=== PATIENT | female | born 1945 | race Caucasian/White ===

== ENCOUNTER 2019-01-30 14:51 | Inpatient (IN) ==
[2019-01-30] MEDS ORDERED: SODIUM CHLORIDE 0.9% 1000ML 1,000 ML IV ONE (15:21)
[2019-01-30] MEDS ORDERED: MECLIZINE HCL 25 MG TAB PO STA (15:21)
[2019-01-30] MEDS ORDERED: PROMETHAZINE 12.5 MG/50.5 ML BAG IV STA (15:36)
[2019-01-30 15:52] LABS: Basophils # (auto) 0.01 K/uL (0-0.2); Basophils % (auto) 0.1 %; Eosinophils # (auto) 0.12 K/uL (0-0.5); Eosinophils % (auto) 1.1 %; Hematocrit (blood only) 38.2 % (37-47); Hemoglobin 12.7 g/dL (12.0-16.0); Immature Granulocytes # (auto) 0.02 K/uL (0.00-0.02); Immature Granulocytes % (auto) 0.2 %; Lymphocytes # (auto) 2.35 K/uL (1.2-3.4); Lymphocytes % (auto) 22.3 %; Mean Corpuscular Hemoglobin 28.3 pg (25-34); Mean Corpuscular Hgb Conc 33.2 g/dL (32-36); Mean Corpuscular Volume 85.3 fL (80-100); Mean Platelet Volume 8.9 fL (7.4-10.4); Monocytes # (auto) 0.53 K/uL (0.11-0.59); Neutrophils # (auto) 7.53 K/uL (1.4-6.5); Neutrophils % (auto) 71.3 %; Platelet Count 298 K/uL (130-400); RDW Coefficient of Variation 13.2 % (11.5-14.5); RDW Standard Deviation 41.1 fL (36.4-46.3); Red Blood Count 4.48 M/uL (4.2-5.4); White Blood Count 10.56 K/uL (4.8-10.8)
--- NOTE | 2019-01-30 16:04 | Emergency Department Note ---
History of Present Illness General Chief complaint: Vomiting Stated complaint: VERTIGO SX, NAUSEA, VOMITING History of Present Illness This patient is a 73-year-old female who presents the emergency department via ALS for evaluation of dizziness and nausea/vomiting that started approximately half hour prior to arrival. The patient was trying to undergo an MRI. When she laid back, she felt intense nausea and dizziness. This is happened in the past. It is never happened to this degree. The patient has not taken any medications for her symptoms. She denies any severe headache or changes in vision. No w eakness or slurred speech. No changes in mental status. She denies any neck pain. Home Medications Home Medications Medication Instructions Recorded Confirmed Type amlodipine 5 mg PO QAM 03/24/18 01/30/19 History glipizide 5 mg PO QAM 03/24/18 01/31/19 History lisinopril 20 mg PO QAM 03/24/18 01/30/19 History famotidine 20 mg PO DAILY 01/30/19 01/30/19 History amitriptyline 20 mg PO HS 01/31/19 01/31/19 History Allergies Allergy/AdvReac Type Severity Reaction Status Date / Time Sulfa (Sulfonamide Allergy Severe Hives Verified 03/24/18 15:32 Antibiotics) Past Med/Surg History Medical History Hypertension Social History Preferred Language: Malawian Communication Ability: Effective Beliefs That Will Affect Care: None Current Living Situation: Spouse Other Information That Helps Us Care for You: No Feels Safe at Home: Yes Safety Concerns: Feels Safe At This Time Smoking Status: Never smoker Hx Alcohol Use: No Hx Substance Use: No Review of Systems A total of 10 systems reviewed and were otherwise negative Physical Exam Vital Signs Vital Signs - 24 hr 01/30/19 14:59 Temperature 36.4 C L Temperature Source Oral Sepsis Recent Fever Within 48 Hours No Sepsis New/Unexplained Change in Mental Status No Sepsis Action Taken by Nursing No Action Required Pulse Rate 73 Respiratory Rate 18 Blood Pressure 178/78 H Blood Pressure Mean 111 Pulse Oximetry 95 Oxygen Delivery Method Room Air Constitutional WD/WN, vitals as above Exam is limited secondary to severe nausea Eyes EOM intact bilaterally ENMT external ear and nose normal, oropharynx normal Neck trachea midline Respiratory normal respiratory effort, lungs clear to auscultation Cardiovascular RRR, no murmur, no edema Gastrointestinal (Abdomen) normal bowel sounds, soft, nontender, no hepatosplenomegaly Musculoskeletal no cyanosis or clubbing, extremities motor strength 5/5 Skin no rashes, warm and dry Neurologic Alert and oriented x3. No focal motor deficits. Psychiatric Acting appropriately Course Patient was seen and examined Vital signs including blood pressure were reviewed medications list was verified with patient Labs were obtained, and a saline lock was established The patient was put on a monitor. She was ordered meclizine and 1 L of normal saline. We attempted imaging. The patient could not tolerate it. She received numerous doses of IV medication for the dizziness. She did not have significant improvement. The patient was also seen by my supervising physician who is in agreement with my plan. The hospital service will be consulted for further possible inpatient management. Consultations Consultation #1: [facility] Administered Medications Discontinued Medications Amitriptyline HCl (Elavil) 20 mg PO HS SALINA Stop: 03/02/19 20:59 Last Admin: 01/31/19 21:19 Dose: 10 mg Documented by: [id number] Amlodipine Besylate (Norvasc) 5 mg PO QAM SALINA Stop: 03/02/19 08:59 Last Admin: 01/31/19 08:54 Dose: 5 mg Documented by: [id number] Diazepam (Valium) 2 mg PO NOW ONE Stop: 01/30/19 16:50 Last Admin: 01/30/19 17:16 Dose: 2 mg Documented by: [id number] Famotidine (Pepcid) 20 mg PO QAM SALINA Stop: 03/01/19 18:59 Last Admin: 02/01/19 08:33 Dose: 20 mg Documented by: [id number] Admin: 01/31/19 08:55 Dose: 20 mg Documented by: [id number] Admin: 01/30/19 23:20 Dose: 20 mg Documented by: [id number] Sodium Chloride (Nss 1000ml) 1,000 mls @ 999 mls/hr IV .Q1H1M ONE Stop: 01/30/19 16:21 Last Infusion: 01/30/19 18:22 Dose: 0 mls/hr Documented by: [id number] Admin: 01/30/19 15:49 Dose: 999 mls/hr Documented by: [id number] Promethazine HCl (Phenergan) 12.5 mg in 50.5 mls @ 202 mls/hr IV NOW STA Stop: 01/30/19 15:50 Last Infusion: 01/30/19 16:20 Dose: 0 mls/hr Documented by: [id number] Admin: 01/30/19 15:49 Dose: 202 mls/hr Documented by: [id number] Sodium Chloride (Nss 1000ml) 1,000 mls @ 50 mls/hr IV .Q20H SALINA Stop: 03/01/19 18:59 Last Infusion: 02/01/19 11:34 Dose: 0 mls/hr Documented by: [id number] Admin: 01/31/19 23:35 Dose: 50 mls/hr Documented by: [id number] Infusion: 01/31/19 23:35 Dose: 50 mls/hr Documented by: [id number] Infusion: 01/31/19 13:33 Dose: 50 mls/hr Documented by: [id number] Admin: 01/31/19 08:26 Dose: 80 mls/hr Documented by: [id number] Infusion: 01/31/19 08:26 Dose: 80 mls/hr Documented by: [id number] Admin: 01/30/19 22:10 Dose: 80 mls/hr Documented by: [id number] Insulin Aspart (Novolog Flexpen) 0 units SC ACHS SALINA Stop: 03/02/19 11:29 Last Admin: 02/01/19 08:37 Dose: Not Given Documented by: [id number] Cosigned by: [id number] Admin: 01/31/19 20:25 Dose: Not Given Documented by: [id number] Cosigned by: [id number] Admin: 01/31/19 17:46 Dose: 1 units Documented by: [id number] Cosigned by: [id number] Admin: 01/31/19 13:21 Dose: 2 units Documented by: [id number] Cosigned by: [id number] Lisinopril (Zestril) 20 mg PO QAM SALINA Stop: 03/02/19 08:59 Last Admin: 01/31/19 08:55 Dose: 20 mg Documented by: [id number] Meclizine HCl (Antivert) 25 mg PO NOW STA Stop: 01/30/19 15:22 Last Admin: 01/30/19 15:49 Dose: 25 mg Documented by: [id number] Metoclopramide HCl (Reglan) 10 mg IV Q6H PRN PRN Reason: Nausea Stop: 03/01/19 21:44 Last Admin: 01/31/19 10:13 Dose: 10 mg Documented by: [id number] Ondansetron HCl (Zofran) Confirm Administered Dose 4 mg .ROUTE .STK-MED ONE Stop: 01/30/19 21:11 Last Admin: 01/30/19 21:18 Dose: 4 mg Documented by: [id number] Medical Decision Making Medical Records Attestation: I reviewed the patient's medical records. Home Medications Current Medication List: was personally reviewed by me Laboratory Data Attestation: I reviewed the patient's lab results. Result diagrams: 01/31/19 06:01 02/01/19 05:28 Lab Results 01/30/19 01/30/19 01/30/19 Range/Units 15:21 15:21 15:21 WBC 10.56 (4.8-10.8) K/uL RBC 4.48 (4.2-5.4) M/uL Hgb 12.7 (12.0-16.0) g/dL Hct 38.2 (37-47) % MCV 85.3 (80-100) fL MCH 28.3 (25-34) pg MCHC 33.2 (32-36) g/dL RDW Std Deviation 41.1 (36.4-46.3) fL RDW Coeff of Breanna 13.2 (11.5-14.5) % Plt Count 298 (130-400) K/uL MPV 8.9 (7.4-10.4) fL Immature Gran % (Auto) 0.2 % Neut % (Auto) 71.3 % Lymph % (Auto) 22.3 % Reynolds % (Auto) 5.0 % Eos % (Auto) 1.1 % Baso % (Auto) 0.1 % Immature Gran # (Auto) 0.02 (0.00-0.02) K/uL Neut # (Auto) 7.53 H (1.4-6.5) K/uL Lymph # (Auto) 2.35 (1.2-3.4) K/uL Reynolds # (Auto) 0.53 (0.11-0.59) K/uL Eos # (Auto) 0.12 (0-0.5) K/uL Baso # (Auto) 0.01 (0-0.2) K/uL PT Cancelled INR Cancelled Sodium 136 (136-145) mmol/L Potassium 3.6 (3.5-5.1) mmol/L Chloride 102 (98-107) mmol/L Carbon Dioxide 28 (21-32) mmol/L Anion Gap 6.0 (3-11) BUN 23 H (7-18) mg/dl Creatinine 1.27 H (0.6-1.2) mg/dl Est Cr Clr Drug Dosing 37.0 ml/min Est GFR ( Amer) 47.8 Est GFR (Non-Af Amer) 41.2 BUN/Creatinine Ratio 18.0 (10-20) Glucose 149 H (70-99) mg/dl POC Glucose (70-99) Calcium 9.3 (8.5-10.1) mg/dl Magnesium (1.8-2.4) mg/dl Total Bilirubin 0.2 (0.2-1) mg/dl AST 7 L (15-37) U/L ALT 16 (12-78) U/L Alkaline Phosphatase 104 (45-117) U/L Total Protein 6.9 (6.4-8.2) gm/dl Albumin 3.4 (3.4-5.0) gm/dl Globulin 3.5 (2.5-4.0) gm/dl Albumin/Globulin Ratio 1.0 (0.9-2) Lipase 135 (73-393) U/L Vitamin B12 (211-911) pg/ml 01/30/19 01/30/19 01/31/19 Range/Units 15:21 20:20 06:01 WBC 5.54 (4.8-10.8) K/uL RBC 3.96 L (4.2-5.4) M/uL Hgb 11.3 L (12.0-16.0) g/dL Hct 33.6 L (37-47) % MCV 84.8 (80-100) fL MCH 28.5 (25-34) pg MCHC 33.6 (32-36) g/dL RDW Std Deviation 41.0 (36.4-46.3) fL RDW Coeff of Breanna 13.1 (11.5-14.5) % Plt Count 288 (130-400) K/uL MPV 8.6 (7.4-10.4) fL Immature Gran % (Auto) 0.0 % Neut % (Auto) 58.2 % Lymph % (Auto) 33.0 % Reynolds % (Auto) 7.2 % Eos % (Auto) 1.4 % Baso % (Auto) 0.2 % Immature Gran # (Auto) 0.00 (0.00-0.02) K/uL Neut # (Auto) 3.22 (1.4-6.5) K/uL Lymph # (Auto) 1.83 (1.2-3.4) K/uL Reynolds # (Auto) 0.40 (0.11-0.59) K/uL Eos # (Auto) 0.08 (0-0.5) K/uL Baso # (Auto) 0.01 (0-0.2) K/uL PT INR Sodium (136-145) mmol/L Potassium (3.5-5.1) mmol/L Chloride (98-107) mmol/L Carbon Dioxide (21-32) mmol/L Anion Gap (3-11) BUN (7-18) mg/dl Creatinine (0.6-1.2) mg/dl Est Cr Clr Drug Dosing ml/min Est GFR ( Amer) Est GFR (Non-Af Amer) BUN/Creatinine Ratio (10-20) Glucose (70-99) mg/dl POC Glucose (70-99) Calcium (8.5-10.1) mg/dl Magnesium 1.9 (1.8-2.4) mg/dl Total Bilirubin (0.2-1) mg/dl AST (15-37) U/L ALT (12-78) U/L Alkaline Phosphatase (45-117) U/L Total Protein (6.4-8.2) gm/dl Albumin (3.4-5.0) gm/dl Globulin (2.5-4.0) gm/dl Albumin/Globulin Ratio (0.9-2) Lipase (73-393) U/L Vitamin B12 268 (211-911) pg/ml 01/31/19 01/31/19 Range/Units 06:01 11:47 WBC (4.8-10.8) K/uL RBC (4.2-5.4) M/uL Hgb (12.0-16.0) g/dL Hct (37-47) % MCV (80-100) fL MCH (25-34) pg MCHC (32-36) g/dL RDW Std Deviation (36.4-46.3) fL RDW Coeff of Breanna (11.5-14.5) % Plt Count (130-400) K/uL MPV (7.4-10.4) fL Immature Gran % (Auto) % Neut % (Auto) % Lymph % (Auto) % Reynolds % (Auto) % Eos % (Auto) % Baso % (Auto) % Immature Gran # (Auto) (0.00-0.02) K/uL Neut # (Auto) (1.4-6.5) K/uL Lymph # (Auto) (1.2-3.4) K/uL Reynolds # (Auto) (0.11-0.59) K/uL Eos # (Auto) (0-0.5) K/uL Baso # (Auto) (0-0.2) K/uL PT INR Sodium 139 (136-145) mmol/L Potassium 3.9 (3.5-5.1) mmol/L Chloride 105 (98-107) mmol/L Carbon Dioxide 28 (21-32) mmol/L Anion Gap 6.0 (3-11) BUN 14 (7-18) mg/dl Creatinine 0.67 D (0.6-1.2) mg/dl Est Cr Clr Drug Dosing 70.1 ml/min Est GFR ( Amer) 99.7 Est GFR (Non-Af Amer) 86.0 BUN/Creatinine Ratio 21.1 H (10-20) Glucose 120 H (70-99) mg/dl POC Glucose 128 H (70-99) Calcium 8.4 L (8.5-10.1) mg/dl Magnesium (1.8-2.4) mg/dl Total Bilirubin 0.4 (0.2-1) mg/dl AST 10 L (15-37) U/L ALT 13 (12-78) U/L Alkaline Phosphatase 90 (45-117) U/L Total Protein 6.0 L (6.4-8.2) gm/dl Albumin 3.0 L (3.4-5.0) gm/dl Globulin 3.0 (2.5-4.0) gm/dl Albumin/Globulin Ratio 1.0 (0.9-2) Lipase (73-393) U/L Vitamin B12 (211-911) pg/ml Blood Pressure Blood Pressure Findings: Elevated blood pressure Head Trauma GCS Score: 15 MDM Narrative Differential diagnosis: Vertigo, intracranial bleed, mass, dehydration, anemia, electrolyte imbalance, infectious etiology, among others This patient is a 73-year-old female who presents to the emergency department with a sudden onset of positional dizziness. She has a history of vertigo. Her symptoms seems consistent with such. She was neurologically intact. Vital signs stable. I did not have a high suspicion of intracranial abnormality. Labs are stable. Unfortunately I cannot get her comfortable. [facility] was consulted for possible inpatient management. Impression & Plan Vertigo Discharge Plan Visit Data *Final* Discharge Date/Time: 01/30/19 21:56 Chief Complaint: Vomiting Stated Complaint: VERTIGO SX, NAUSEA, VOMITING ED Provider: Saqib Shields ED Midlevel Provider: Laura Reed Discharge Problem: Vertigo Patient Disposition: Admitted As Inpatient Condition: Fair Discharge Instructions Interventions: ED Discharge Assessment Last Done: 01/30/19 21:56
[2019-01-30 16:08] LABS: Albumin Level 3.4 gm/dl (3.4-5.0); Calcium 9.3 mg/dl (8.5-10.1); Est GFR (African American) 47.8; Est GFR (Non-African American) 41.2; Potassium 3.6 mmol/L (3.5-5.1)
[2019-01-30 16:11] LABS: Bilirubin,Total 0.2 mg/dl (0.2-1); Globulin 3.5 gm/dl (2.5-4.0); Total Protein 6.9 gm/dl (6.4-8.2)
[2019-01-30] MEDS ORDERED: diazePAM 2 MG TABLET PO ONE (16:49)
[2019-01-30] MEDS ORDERED: ONDANSETRON INJ 2 MG/ML 2 ML VIAL IV PRN (18:54)
[2019-01-30] MEDS ORDERED: ONDANSETRON INJ 2 MG/ML 2 ML VIAL ONE (21:10)
--- NOTE | 2019-01-30 21:32 | History & Physical Report ---
Date of Service January 30, 2019 Assessment & Plan (1) Nausea & vomiting: -01/30/19: patient is a 73-year-old female who presents the emergency department via ALS for evaluation of dizziness and nausea/vomiting that started approximately half hour prior to arrival. The patient was trying to undergo an MRI. When she laid back, she felt intense nausea and dizziness -clear liquid diet -antiemetics prn -IV fluids -would avoid any head imaging at this time until patient feel subjectively be tter -patient reports when she walks at home, she feels like she has problems with balance -obtain PT and OT evaluations -B12 levels are normal -patient has followed with [facility] cardiology and 11/22/18 workup noted that symptoms of generalized fatigue and continuous lightheadedness unresolving however with generally unremarkable ZIO patch monitor on October 2018 and negative stress echocardiogram in November 2018 borderline gastroparesis, Gastroesophageal Reflux Disease (GERD) -patient was evaluated on 01/01/19 by outpatient [facility] gastronenterology and was recommended to stop stop Ranitidine and Start Famotidine 20mg daily -outpatient GI notes also noted that patient has been in the past in Reglan and had plans of Levsin 0.125mg TID prn abd pain; trial increase of Amitriptyline to 20mg qHS but by history it is not clear that patient is taking these new medication/medication dosing at home Acute kidney injury -creatinine 1.27 on 01/30/19 compared to creatinine of 0.7 on 10/05/18 outpatient records on [facility] -IV fluids -send urine analysis (2) HTN (hypertension): -continue home dose lisinopril and amlodipine DVT prophylaxis SCDs Full Code Agapito [phone], Daughter [phone] Hinson will be following the patient starting on 01/31/19 History of Present Illness patient is a 73-year-old female who presents the emergency department via ALS for evaluation of dizziness and nausea/vomiting that started approximately half hour prior to arrival. The patient was trying to undergo an MRI. When she laid back, she felt intense nausea and dizziness. When seen by hospitalist in the ED, patient's appeared very tired but able to give history. Patient did not seem to be in acute distress. denied fevers. denied diarrhea or problems with bowel movements. no acute abdominal pain. no chest pain. no shortness of breath. However, she did not seem ready to be able to leave the emergency room on her own power Primary Care Provider: Devi Isidro DO Allergies Allergy/AdvReac Type Severity Reaction Status Date / Time Sulfa (Sulfonamide Allergy Severe Hives Verified 03/24/18 15:32 Antibiotics) Home Medications Home Medications Medication Instructions Recorded Confirmed Type amlodipine 5 mg PO QAM 03/24/18 01/30/19 History glipizide 2.5 mg PO QAM 03/24/18 01/30/19 History lisinopril 20 mg PO QAM 03/24/18 01/30/19 History famotidine 20 mg PO DAILY 01/30/19 01/30/19 History Past Med/Surg History Medical History Hypertension Social History Preferred Language: Emirati Feels Safe at Home: Yes Smoking Status: Never smoker Physical Exam Constitutional: appeared tired in appearance Eyes: PERRL, conjunctivae normal, anicteric sclerae ENMT: external ear and nose normal, oropharynx normal Neck: normal visual inspection Respiratory: normal respiratory effort, lungs clear to auscultation Cardiovascular: Rate/Rhythm: regular rate and regular rhythm Gastrointestinal (Abdomen): normal bowel sounds, soft, nontender, no hepatosplenomegaly Musculoskeletal: Head/Neck/Chest: normocephalic and head atraumatic Neurologic: PERRL, EOMI, accommodation nl, no face palsy, no dysarthria Psychiatric: Orientation: alert, oriented x 3 and cooperative Results & Data Vital Signs (Past 12 Hours) Vital Signs Temp Pulse Pulse Resp BP BP Pulse Ox 01/30/19 20:00 60 14 158/59 H 95 01/30/19 19:30 60 14 159/65 H 95 01/30/19 19:00 60 14 157/76 H 96 01/30/19 18:30 63 15 156/66 H 96 01/30/19 18:21 63 18 158/78 H 97 01/30/19 18:20 67 21 158/78 H 97 01/30/19 17:31 56 L 16 165/61 H 01/30/19 17:01 59 L 13 165/67 H 01/30/19 17:00 61 14 01/30/19 16:39 80 18 150/78 H 95 01/30/19 16:00 58 L 18 151/63 H 01/30/19 15:08 72 22 95 01/30/19 15:00 74 14 180/73 H 93 01/30/19 14:59 36.4 C L 73 18 178/78 H 95 Code Status & VTE Plan VTE Prophylaxis Plan VTE Prophylaxis will be ordered: Yes
[2019-01-30] MEDS ORDERED: METOCLOPRAMIDE HCL INJ 5 MG/ML 2 ML VIAL IV PRN (21:45)
[2019-01-30] MEDS: SODIUM CHLORIDE 0.9% 1000ML 1,000 ML IV SCH (22:10)
[2019-01-30] MEDS: FAMOTIDINE 20 MG TAB PO SCH (23:20)
[2019-01-31] MEDS ORDERED: Nursing to Pharmacy Communication ONE ×2 (01:10→10:09)
[2019-01-31 06:22] LABS: Basophils # (auto) 0.01 K/uL (0-0.2); Basophils % (auto) 0.2 %; Eosinophils # (auto) 0.08 K/uL (0-0.5); Eosinophils % (auto) 1.4 %; Hematocrit (blood only) 33.6 % (37-47); Hemoglobin 11.3 g/dL (12.0-16.0); Lymphocytes # (auto) 1.83 K/uL (1.2-3.4); Mean Corpuscular Hemoglobin 28.5 pg (25-34); Mean Corpuscular Hgb Conc 33.6 g/dL (32-36); Mean Corpuscular Volume 84.8 fL (80-100); Mean Platelet Volume 8.6 fL (7.4-10.4); Monocytes % (auto) 7.2 %; Neutrophils # (auto) 3.22 K/uL (1.4-6.5); Neutrophils % (auto) 58.2 %; Platelet Count 288 K/uL (130-400); RDW Coefficient of Variation 13.1 % (11.5-14.5); Red Blood Count 3.96 M/uL (4.2-5.4); White Blood Count 5.54 K/uL (4.8-10.8)
[2019-01-31 06:45] LABS: Appearance Urine Clear (Clear); Bilirubin Urine Negative (Negative); Blood Urine Negative (Negative); Color Urine Yellow; Glucose Urine UA Negative (Negative); Ketones Urine Trace (Negative); Leukocyte Esterase Urine Negative (Negative); Nitrite Urine Negative (Negative); Protein Urine Negative (Negative); Urobilinogen Urine Negative (Negative)
[2019-01-31 06:59] LABS: BUN Creatinine Ratio 21.1 (10-20); Calcium 8.4 mg/dl (8.5-10.1); Creatinine Clr Calc Pharmacy 70.1 ml/min; Est GFR (African American) 99.7; Potassium 3.9 mmol/L (3.5-5.1)
[2019-01-31 07:00] LABS: Bilirubin,Total 0.4 mg/dl (0.2-1)
[2019-01-31] MEDS: SODIUM CHLORIDE 0.9% 1000ML 1,000 ML IV SCH ×2 (08:26→23:35)
[2019-01-31] MEDS: FAMOTIDINE 20 MG TAB PO SCH (08:55)
[2019-01-31] MEDS ORDERED: LISINOPRIL 20 MG TAB PO SCH (09:00)
[2019-01-31] MEDS ORDERED: AMLODIPINE BESYLATE 5 MG TAB PO SCH (09:00)
[2019-01-31] MEDS ORDERED: GLUCOSE 10 TABS/TUBE PO PRN (09:34)
[2019-01-31] MEDS ORDERED: GLUCAGON FOR INJ 1 MG VIAL SQ PRN (09:34)
[2019-01-31] MEDS ORDERED: DEXTROSE 50% 50 ML SYRINGE IV PRN (09:34)
[2019-01-31] MEDS ORDERED: GLUCOSE 40% GEL 15 GM TUBE PO PRN (09:34)
[2019-01-31] MEDS ORDERED: CARBOHYDRATES FOR HYPOGLYCEMIA PO PRN (09:34)
[2019-01-31] MEDS: INSULIN ASPART 100 UNITS/ML 3 ML PEN SC SCH ×3 (13:21→20:25)
[2019-01-31] MEDS ORDERED: FAMOTIDINE 20 MG TAB PO SCH (13:30)
--- NOTE | 2019-01-31 15:47 | Hospitalist Progress Note ---
Date of Service January 31, 2019 Assessment & Plan (1) Nausea & vomiting: Patient is a 73 Yr female who presents for evaluation of dizziness and nausea/vomiting that started after she laid back to undergo an MRI. Dizziness Vertigo Could not obtain CT/MRI due to difficulty to lie flat Orthostatics Negative Had extensive work up with [facility] Cardiology as outpatient with ZIO patch, Stress test Vertigo resolved as per patient Gentle IV fluids Antiemetics PRN Gastroparesis Continue Amitriptyline Follows with GI as outpatient Gastroparesis diet Acute kidney injury Cr back to baseline after IV fluids Monitor renal function Avoid nephrotoxic agents as able (2) HTN (hypertension): Slightly elevated Continue lisinopril and amlodipine Limited choice for med changes due to dizziness and bradycardia DM II Hold PO meds Utilize ISS while hospitalized DVT Px: SCDs Code Status Full Code Disposition Expect to discharge home when stable Subjective Patient is seen and examined at bedside Complaints of nausea which is chronic, which she attributes to gastroparesis Vertigo resolved States having mild dizziness and balance issues Denies any chest pain, shortness of breath, vomiting, fever chills Family at bedside Offers no other complaints PT evaluated earlier today Review of Systems Review of Systems: All systems reviewed & are unremarkable except as noted in HPI & below Physical Exam Physical Exam: Physical Exam: Vitals signs as noted above General Appearance:Moderately built and nourished, no apparent distress Head: normocephalic, Atraumatic Eyes: normal inspection, EOMI Neck: supple, Trachea midline Respiratory/Chest: Normal breath sounds, CTA Cardiovascular: S1, S2, No murmur Abdomen/GI:Soft, Non tender, Bowel sounds present Extremities/Musculoskelatal:normal inspection, no edema Neurologic/Psych:AAOX3, grossly no focal neurological deficits Skin: normal color, warm Results & Data Vital Signs (Past 12 Hours) Vital Signs Temp Pulse Resp BP Pulse Ox 01/31/19 15:12 36.4 C L 53 L 18 136/74 94 01/31/19 07:30 36.7 C 57 L 18 151/74 H 97 Laboratory Results Short CBC 01/30/19 01/31/19 Range/Units 15:21 06:01 WBC 10.56 5.54 (4.8-10.8) K/uL Hgb 12.7 11.3 L (12.0-16.0) g/dL Hct 38.2 33.6 L (37-47) % Plt Count 298 288 (130-400) K/uL BMP 01/30/19 01/31/19 15:21 06:01 Sodium 136 139 Potassium 3.6 3.9 Chloride 102 105 Carbon Dioxide 28 28 BUN 23 H 14 Creatinine 1.27 H 0.67 D Glucose 149 H 120 H Calcium 9.3 8.4 L Liver Function 01/30/19 01/31/19 Range/Units 15:21 06:01 Total Bilirubin 0.2 0.4 (0.2-1) mg/dl AST 7 L 10 L (15-37) U/L ALT 16 13 (12-78) U/L Alkaline Phosphatase 104 90 (45-117) U/L Albumin 3.4 3.0 L (3.4-5.0) gm/dl Urine 01/31/19 Range/Units Unknown Urine Color Yellow Urine Appearance Clear (Clear) Urine pH 7.0 (4.5-7.5) Ur Specific [place] 1.020 (1.000-1.030) Urine Protein Negative (Negative) Urine Glucose (UA) Negative (Negative)
[2019-01-31] MEDS ORDERED: MECLIZINE 12.5 MG TAB PO PRN (15:48)
[2019-01-31] MEDS ORDERED: ONDANSETRON INJ 2 MG/ML 2 ML VIAL IV PRN (15:50)
[2019-01-31] MEDS ORDERED: AMITRIPTYLINE HCL 10 MG TAB PO SCH (21:00)
[2019-02-01 06:14] LABS: BUN Creatinine Ratio 16.7 (10-20); Calcium 8.5 mg/dl (8.5-10.1); Creatinine Clr Calc Pharmacy 69.1 ml/min; Est GFR (African American) 99.2; Est GFR (Non-African American) 85.6; Potassium 3.9 mmol/L (3.5-5.1)
[2019-02-01] MEDS: FAMOTIDINE 20 MG TAB PO SCH (08:33)
[2019-02-01] MEDS: INSULIN ASPART 100 UNITS/ML 3 ML PEN SC SCH (08:37)
--- NOTE | 2019-02-01 12:05 | Hospitalist Progress Note ---
Date of Service February 01, 2019 Assessment & Plan (1) Nausea & vomiting: Patient is a 73 Yr female who presents for evaluation of dizziness and nausea/vomiting that started after she laid back to undergo an MRI. Dizziness--Resolved Vertigo --Resolved Could not obtain CT/MRI due to difficulty to lie flat Orthostatics Negative Had extensive work up with [facility] Cardiology as outpatient with ZIO patch, Stress test Vertigo resolved as per patient Received gentle IV fluids Antiemetics PRN Meclizine not helpful in the past as per patient Gastroparesis Continue Amitriptyline Follows with GI as outpatient Gastroparesis diet Acute kidney injury Cr back to baseline after IV fluids Monitor renal function Avoid nephrotoxic agents as able (2) HTN (hypertension): Slightly elevated Continue lisinopril and amlodipine Limited choice for med changes due to dizziness and bradycardia DM II Hold PO meds Utilize ISS while hospitalized DVT Px: SCDs Code Status Full Code Disposition Plan to discharge home today Did well with PT Subjective Patient is seen and examined at bedside Doing much better today Offers no complaints Dizziness, Vertigo, nausea resolved Denies any chest pain, shortness of breath, vomiting, fever chills Plan to discharge home today Review of Systems Review of Systems: All systems reviewed & are unremarkable except as noted in HPI & below Physical Exam Physical Exam: Physical Exam: Vitals signs as noted above General Appearance:Moderately built and nourished, no apparent distress Head: normocephalic, Atraumatic Eyes: normal inspection, EOMI Neck: supple, Trachea midline Respiratory/Chest: Normal breath sounds, CTA Cardiovascular: S1, S2, No murmur Abdomen/GI:Soft, Non tender, Bowel sounds present Extremities/Musculoskelatal:normal inspection, no edema Neurologic/Psych:AAOX3, grossly no focal neurological deficits Skin: normal color, warm Results & Data Vital Signs (Past 12 Hours) Vital Signs Temp Pulse Resp BP Pulse Ox 02/01/19 07:10 36.3 C L 78 20 149/73 H 97 Laboratory Results [facility] 02/01/19 05:28 Sodium 138 Potassium 3.9 Chloride 104 Carbon Dioxide 30 BUN 11 Creatinine 0.68 Glucose 108 H Calcium 8.5
--- NOTE | 2019-02-01 12:08 | Discharge Summary ---
Date of Service February 01, 2019 Admission HPI Per Admitting Provider patient is a 73-year-old female who presents the emergency department via ALS for evaluation of dizziness and nausea/vomiting that started approximately half hour prior to arrival. The patient was trying to undergo an MRI. When she laid back, she felt intense nausea and dizziness. When seen by hospitalist in the ED, patient's appeared very tired but able to give history. Patient did not seem to be in acute distress. denied fevers. denied diarrhea or problems with bowel movements. no acute abdominal pain. no chest pain. no shortness of breath. However, she did not seem ready to be able to leave the emergency room on her own power Primary Care Provider: Devi Isidro, DO Admission Exam Per Admitting Provider Constitutional: appeared tired in appearance Eyes: PERRL, conjunctivae normal, anicteric sclerae ENMT: external ear and nose normal, oropharynx normal Neck: normal visual inspection Respiratory: normal respiratory effort, lungs clear to auscultation Cardiovascular: Rate/Rhythm: regular rate and regular rhythm Gastrointestinal (Abdomen): normal bowel sounds, soft, nontender, no hepatosplenomegaly Musculoskeletal: Head/Neck/Chest: normocephalic and head atraumatic Neurologic: PERRL, EOMI, accommodation nl, no face palsy, no dysarthria Psychiatric: Orientation: alert, oriented x 3 and cooperative Principal Diagnosis Dizziness Vertigo Discharge Data Allergies Allergy/AdvReac Type Severity Reaction Status Date / Time Sulfa (Sulfonamide Allergy Severe Hives Verified 03/24/18 15:32 Antibiotics) Consultations 01/30/19 18:14 ED Decision to Admit Stat 01/30/19 18:54 Consult Case Management - Discharge Planning Routine Hospital Course (1) Nausea & vomiting: Patient is a 73 Yr female who presents for evaluation of dizziness and nausea/vomiting that started after she laid back to undergo an MRI. Dizziness--Resolved Vertigo --Resolved Could not obtain CT/MRI due to difficulty to lie flat Orthostatics Negative Had extensive work up with [facility] as outpatient with ZIO patch, Stress test Vertigo resolved as per patient Received gentle IV fluids Antiemetics PRN Meclizine not helpful in the past as per patient Gastroparesis Continue Amitriptyline Follows with GI as outpatient Gastroparesis diet Acute kidney injury Cr back to baseline after IV fluids Monitor renal function Avoid nephrotoxic agents as able (2) HTN (hypertension): Slightly elevated Continue lisinopril and amlodipine Limited choice for med changes due to dizziness and bradycardia DM II Hold PO meds Utilize ISS while hospitalized DVT Px: SCDs Code Status Full Code Disposition Plan to discharge home today Did well with PT Total Time Total Time Spent Total Time Spent (In Minutes): 38 minutes Total Time Includes: Examination of the Patient, Discharge Planning, Medication Reconciliation, Communication With Other Providers and Other Discharge Plan Discharge Items Patient Disposition: Home - Self-Care Reason For Visit: NAUSEA Discharge Diagnosis: Dizziness Vertigo Activity: Resume your previous activity Exercise/Sports: Gradually increase as tolerated Non-emergency contact: Primary Care Provider Call non-emergency contact if: you have any medication questions, your symptoms worsen, your pain is not controlled, your pain is worsening, your pain is unusual for you, your pain is concerning for you and you have a fever Follow-up/Referrals: Devi Isidro, DO [Primary Care Provider] - Diet: Carb Consistent or DM2 Addtl Attending Provider Instructions: Follow-up with your primary care physician on February 07, 2019 at 11:05 AM Seek immediate medical attention if your symptoms reoccur or worsen Pending Studies at Discharge: No Stand-Alone Forms: My [facility] [employer], Smoking Cessation Medications and DC Order Prescriptions: Continued lisinopril 20 mg Tablet 20 mg PO QAM RF: 0 amlodipine 5 mg Tablet 5 mg PO QAM RF: 0 glipizide 2.5 mg Tablet Extended Release 24hr 5 mg PO QAM RF: 0 famotidine 20 mg tablet 20 mg PO DAILY RF: 0 amitriptyline 10 mg Tablet 20 mg PO HS RF: 0 Discharge Orders: Discharge Order (Routine); Ordered 02/01/19 Ordered By: Clarence Oconnell/Other Patient Handouts: Hyperglycemia, Hypoglycemia Admission Data Admit Date/Time: 01/31/19 13:37 Attending Provider: Clarence Hinson Admit Provider: Valentín Chadwick Primary Care Provider: Devi Isidro Other Providers: Valentín Chadwick Other Interventions: Discharge Summary Assessment (RN) Last Done: 02/01/19 12:16 DC Date/Time DO NOT enter until pt leaves facility: 02/01/19 13:00
[2019-02-01] MEDS ORDERED: LISINOPRIL 20 MG TAB PO SCH (21:00)
[2019-02-01] MEDS ORDERED: AMLODIPINE BESYLATE 5 MG TAB PO SCH (21:00)
== END 2019-02-01 13:00 | disposition home or self-care (01) | DRG 392 ==
LOC: 4W 14:51 → ED 14:51 → SUATTDRO 21:16 → 4W 21:56

== ENCOUNTER 2021-02-17 08:25 | Observation (INO) ==
--- NOTE | 2020-12-31 16:21 | PAT Medication Instructions ---
Medication Instructions Date of Service December 31, 2020 Home Medications amlodipine 5 mg tablet 5 mg PO QAM glipizide 2.5 mg tablet, extended release 24 hr 5 mg PO BID lisinopril 20 mg tablet 20 mg PO QAM famotidine 20 mg tablet 20 mg PO BID amitriptyline 10 mg tablet 20 mg PO HS cholecalciferol (vitamin D3) 25 mcg (1,000 unit) chewable tablet (Vitamin D3) 25 mcg PO PM prednisone 5 mg tablet 5 mg PO QAM DO NOT take the morning of surgery glipizide 2.5 mg tablet, extended release 24 hr 5 mg PO BID lisinopril 20 mg tablet 20 mg PO QAM Take morning of surgery With a small sip of water, OTHERWISE NOTHING TO EAT OR DRINK AFTER MIDNIGHT: amlodipine 5 mg tablet 5 mg PO QAM famotidine 20 mg tablet 20 mg PO BID prednisone 5 mg tablet 5 mg PO QAM Take evening before surgery glipizide 2.5 mg tablet, extended release 24 hr 5 mg PO BID famotidine 20 mg tablet 20 mg PO BID amitriptyline 10 mg tablet 20 mg PO HS cholecalciferol (vitamin D3) 25 mcg (1,000 unit) chewable tablet (Vitamin D3) 25 mcg PO PM Other Notes If you have any questions please call us at [phone] or [phone] or [phone] or [phone]
--- NOTE | 2021-01-04 15:26 | Anesthesiology Consultation ---
Date of Service January 04, 2021 Assessment & Plan (1) Encounter for pre-operative examination: Chart Review Chart Review: Acceptable Risk for Surgery (pending preop Covid testing results ) and Patient seen in Pre Admission Testing PT STATES SHE GETS SIGNIFICANT NAUSEA AND DIZZINESS AFTER LYING FLAT EVEN FOR SHORT PERIODS OF TIME - Check BSG AM DOS Per PAT appt on 01/04/21, patient is planning on going to a play in [place] on 01/09/21- she will wear a mask and try to social distance as much as possible. Patient educated on risks- patient understands and accepts. No known Covid positive contacts or Covid related symptoms. No known Covid infection in the past 90 days. Pt is vaccinated for Covid.. Preop Covid testing scheduled 01/11/21= will await results. Educated on importance of self quarantining, social distancing and wearing mask in public for the patient one week prior to surgery and after Covid testing done. Patient seen by cardiology 12/31/2020 = patient seen for routine cardiology follow-up and preoperative cardio evaluation. Early signs of tachybradycardia syndrome, without evidence of worsening bradycardia or high degree AV block on monitor. Asymptomatic. Hypertensioncontrolled. Hyperlipidemia, without lipid-lowering therapy. Stable cardiac symptoms. Recent monitor reviewed without concerning tachycardia or bradycardia arrhythmias. BP well controlled. DSE approximately 2 years ago without inducible ischemia, normal LV function and no significant valvular disease. No symptoms to suggest crescendo angina or CHF at this time. EKG without acute changes. Other than her hip painshe is able to walk >100 yards, and greater than 5 METS workload without symptoms. " She is considered low to moderate risk for perioperative cardiac complications based on history and comorbidities. Further cardiac testing is not warranted at this time prior to planned orthopedic procedure." Continue carvedilol without interruption. Follow-up in 1 year. Cardiac clearance request 12/31/2020 = " yes" patient is cleared for surgery. Teaching & Discussion Pre-Anesthesia Teaching/Discussion Notes: Instructed NPO after midnight before surgery,except medications with 15 cc of water. Medication instructions provided according to the PAT guidelines. History Surgery Operation Date: 01/12/21 10:20 Proposed Procedures p Left Total Hip Arthroplasty versus Dual Mobility - Antoni Heart MD Height/Weight Height: 5 ft 4 in Weight: 65.6 kg Allergies Allergy/AdvReac Type Severity Reaction Status Date / Time Sulfa (Sulfonamide Allergy Severe Hives Verified 12/28/20 09:43 Antibiotics) Medications Home Medications Medication Instructions Recorded Confirmed Last Taken amlodipine 5 mg tablet 5 mg PO QAM 03/24/18 12/28/20 03/24/18 glipizide 2.5 mg tablet, extended 5 mg PO BID 03/24/18 12/28/20 03/24/18 release 24 hr lisinopril 20 mg tablet 20 mg PO QAM 03/24/18 12/28/20 03/24/18 famotidine 20 mg tablet 20 mg PO BID 01/30/19 12/28/20 Unknown amitriptyline 10 mg tablet 20 mg PO HS 01/31/19 12/28/20 Unknown cholecalciferol (vitamin D3) 25 25 mcg PO PM 12/28/20 12/28/20 Unknown mcg (1,000 unit) chewable tablet (Vitamin D3) prednisone 5 mg tablet 5 mg PO QAM 12/28/20 12/28/20 Unknown carvedilol 3.125 mg tablet 3.125 mg PO BID 01/04/21 01/04/21 Unknown Past Medical History Medical History Borderline high cholesterol no meds BPPV (benign paroxysmal positional vertigo) CANNOT lie flat, gets severe balance problem and nausea Diabetes mellitus, type 2 NIDDM Glucose stable Gastroparesis GERD (gastroesophageal reflux disease) Diet dependent History of COVID-21 Mar 2020> tested at [facility] > chills, extreme exhaustion> not hospitalized Hypertension Polymyalgia rheumatica Follows with rheum (Dr. Lo) - stable per patient PONV (postoperative nausea and vomiting) severe> took a week to get over this last time Tachycardia Borderline tachy-yari syndrome, paroxysmal atrial tachycardia per records Controlled on low dose carvedilol Exercise / Class Metabolic Activity II 4-5 Yardwork/Stairs/Walk up hill (one flight of stairs - no chest pain or SOB ) Past Family History Family History Mother Diabetes Father Diabetes Brother Diabetes Other Cancer Heart disease Stroke Past Surgical History Surgical History Fracture, sacrum/coccyx as child, had to have sacrum removed due to fx History of colonoscopy History of esophagogastroduodenoscopy (EGD) History of tooth extraction History of total knee replacement bilat Past Anesthesia History No Hx of Anesthesia Complications and No Family Hx of Anesthesia Complications (with exception to daughter - PONV ) History of PONV History of PONV (WITH LAYING FLAT ON BACK ) and Hx of Motion Sickness Social History Smoking Status: Never smoker Do You Dip or Chew Tobacco: No Hx Alcohol Use: No Hx Substance Use: No substance use type: does not use Review of Systems Hx of blood transfusion with right TKA - used own blood Patient denies chest pain, shortness of breath at rest, cough, wheezing, palpitations. No hx of seizures, stroke, ND, apnea/snoring. No hx of blood clots. Physical Exam Vital Signs VITALS BP 146/67 P 62 TEMP 97.7 SP02 97% RESP 16 Constitutional no acute distress ENMT Mouth: no TMJ clicking Thyromental Distance: < 3.5 Finger Breadths (2.5) Mallampati Class: II Crowns to molars Neck + limited neck extension (significant ) Respiratory normal respiratory effort; no respiratory distress Auscultation: lungs clear to auscultation bilaterally; no wheezes Cardiovascular Rate/Rhythm: regular rate and regular rhythm Heart Sounds: no murmur Vessels: no carotid bruit Musculoskeletal Spine: + pain with cervical ROM Extremities: extremities normal to inspection Psychiatric Orientation: alert Lab Results Anesthesia Preop Results Results Anesthesia Widget: WBC 7.16 K/uL (4.8-10.8) 01/04/21 Hgb 12.2 g/dL (12.0-16.0) 01/04/21 Hct 37.3 % (37-47) 01/04/21 Plt 332 K/uL (130-400) 01/04/21 Na 137 mmol/L (136-145) 01/04/21 K 4.0 mmol/L (3.5-5.1) 01/04/21 Cl 104 mmol/L (98-107) 01/04/21 CO2 27 mmol/L (21-32) 01/04/21 BUN 16 mg/dl (7-18) 01/04/21 Creat 0.80 mg/dl (0.6-1.2) 01/04/21 Glucose Level 269 mg/dl (70-99) H 01/04/21 PT 9.9 Seconds (9.0-12.0) 01/04/21 PTT 24.5 Seconds (21.0-31.0) 01/04/21 INR 1.0 (0.9-1.1) 01/04/21 HA1c 7.6 % (4.5-5.6) H 01/04/21 Urine Color Yellow 01/04/21 Urine Appearance Clear (Clear) 01/04/21 Urine pH 6.0 (4.5-7.5) 01/04/21 Urine Specific [place] 1.017 (1.000-1.030) 01/04/21 Urine Protein Negative (Negative) 01/04/21 Urine Glucose (UA) 2+ (Negative) H 01/04/21 Urine Ketones Negative (Negative) 01/04/21 Urine Blood Negative (Negative) 01/04/21 Urine Nitrite Negative (Negative) 01/04/21 Urine Bilirubin Negative (Negative) 01/04/21 Urine Urobilinogen Negative (Negative) 01/04/21 Urine Leukocyte Esterase Negative (Negative) 01/04/21 Blood Type A Positive 01/04/21 Antibody Screen NEGATIVE 01/04/21 Lab Comments: Surgeon's office informed of glucose levels Testing Electrocardiogram Date: 12/31/20 Sinus rhythm with PACs at 63 bpm. Otherwise normal EKG per cardio. When compared to EKG from May 27, 2019PACs are now present, criteria for anterior septal infarct are no longer present per cardio. Chest X-Ray Date: 01/04/21 Findings: + NAD Stress Test Date: 11/23/18 Type: exercise Resting EF: 55 to 60% Resting LV Function: normal Resting RWMA: + none Valvular Disease: no significant valvular disease Stress ECHO is negative for inducible ischemia. MPHR 88%. 7 METS achieved. Stress EKG showed no evidence of ischemia. No arrhythmias. Hypertensive BP response to exercise. Average exercise tolerance. At rest, normal LV chamber size and wall thickness. Grade 1 diastolic dysfunction. Other Testing ZIO monitor 12/08/2020 = minimal HR 41 bpm, max HR 174 bpm and average HR 65 bpm. Predominant underlying rhythm was sinus rhythm. 54 supraventricular tachycardia runs occurred. Supraventricular tachycardia was detected within +/-45 seconds of symptomatic events. Some episodes of supraventricular tachycardia may be possible atrial tachycardia with variable block. Isolated SVE's were rare. SVE couplets were rare. SVE triplets were rare. Isolated VE's were rare. VE couplets were rare. VE triplets were rare. Ventricular bigeminy and trigeminy were present.
--- NOTE | 2021-01-04 17:01 | History & Physical Report ---
Date of Service January 04, 2021 Assessment & Plan (1) Degenerative joint disease of left hip: Plan: Postoperative prescriptions for Percocet and Coumadin will be provided at discharge from the hospital. Anticipate discharge to home with home health services. She states her is ill and will not be able to drive her to many appointments. The patient already has a walker. She understands that the case, may be postponed due to bed space limitations at the hospital. The patient is aware of COVID-19 risks associated with surgery. She is currently asymptomatic of any COVID-19 symptoms. She will obtain nasal swab testing on Monday prior to surgery. PDMP was checked and there are no concerning findings. History of Present Illness Chief Complaint: Left hip pain Primary Care Provider: Devi Isidro, This 75-year-old female presents today for her preoperative history and physical. She is scheduled to undergo a left total hip arthroplasty with possible dual mobility cup on 01/12/2021. The patient has had left hip pain for several years. It was slowly getting worse. 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 She is now walking with a walking stick. Pain is worse with weightbearing. It is sore, but is tolerable when sitting. She denies any numbness or tingling. She has tried conservative measurements including activity modification and oral pain medication without improvement. She elects to proceed with surgical intervention in hopes of improving her pain and function. Preoperative imaging has been obtained. Allergies Allergy/AdvReac Type Severity Reaction Status Date / Time Sulfa (Sulfonamide Allergy Severe Hives Verified 12/28/20 09:43 Antibiotics) Home Medications Medication Instructions Recorded Confirmed Type amlodipine 5 mg tablet 5 mg PO QAM 03/24/18 12/28/20 History glipizide 2.5 mg tablet, extended 5 mg PO BID 03/24/18 12/28/20 History release 24 hr lisinopril 20 mg tablet 20 mg PO QAM 03/24/18 12/28/20 History famotidine 20 mg tablet 20 mg PO BID 01/30/19 12/28/20 History amitriptyline 10 mg tablet 20 mg PO HS 01/31/19 12/28/20 History cholecalciferol (vitamin D3) 25 25 mcg PO PM 12/28/20 12/28/20 History mcg (1,000 unit) chewable tablet (Vitamin D3) prednisone 5 mg tablet 5 mg PO QAM 12/28/20 12/28/20 History carvedilol 3.125 mg tablet 3.125 mg PO BID 01/04/21 01/04/21 History Past Med/Surg History Medical History Borderline high cholesterol no meds BPPV (benign paroxysmal positional vertigo) CANNOT lie flat, gets severe balance problem and nausea Diabetes mellitus, type 2 NIDDM Glucose stable Gastroparesis GERD (gastroesophageal reflux disease) Diet dependent History of COVID-21 Mar 2020> tested at [facility] > chills, extreme exhaustion> not hospitalized Hypertension Polymyalgia rheumatica Follows with rheum (Dr. Lo) - stable per patient PONV (postoperative nausea and vomiting) severe> took a week to get over this last time Tachycardia Borderline tachy-yari syndrome, paroxysmal atrial tachycardia per records Controlled on low dose carvedilol Surgical History Fracture, sacrum/coccyx as child, had to have sacrum removed due to fx History of colonoscopy History of esophagogastroduodenoscopy (EGD) History of tooth extraction History of total knee replacement bilat Family History (Updated 01/04/21 @ 16:57 by Petros Robledo PA-C) Mother Diabetes Father Diabetes Brother Diabetes Other Cancer Heart disease Stroke Social History (Updated 01/04/21 @ 16:57 by Petros Robledo PA-C) Smoking Status: Never smoker Second Hand Exposure: Yes (parents smoked); Hx Alcohol Use: No Hx Substance Use: No Preferred Language: Danish Communication Ability: Effective Hearing Ability: Normal Archaeology Professor Required: No Beliefs That Will Affect Care: None marital status: Current Living Situation: Spouse current occupational status: retired Feels Safe at Home: Yes Assistive Devices: Glasses Review of Systems Review of Systems: All systems reviewed & are unremarkable except as noted in HPI & below A total of 10 systems were reviewed. Physical Exam Physical Exam: Vitals: Height 158 cm, weight 65.4 kilograms, BMI 26.2, temperature 36.5, BP 122/62, respirations 16, O2 sat 98% on room air. General: Well-developed, well-nourished, elderly white female in no acute distress. Sitting in a chair. Alert and oriented. Skin: Warm and dry with good turgor. No rashes or lesions. No ecchymosis or erythema. HEENT: Normocephalic, atraumatic. Eyes: PERRLA, EOMI. Nares and oropharynx exams deferred due to COVID precautions. Heart: RRR, no MGR. Lungs: Clear to auscultation bilaterally. No crackles, rhonchi or wheezing. Good air movement. Abdomen: Mildly obese. Bowel sounds present x4, soft, nontender. No organomegaly. No masses. Musculoskeletal: Left hip evaluation reveals no obvious asymmetry or deformity. She has limitations in motion secondary to pain. Hip flexion to around 100 degrees, external rotation of around 10 degrees, internal rotation to just past neutral. These are all limited by pain. No discomfort with palpation over the distal thigh, greater trochanter, gluteus, or quadriceps. She does have discomfort over the anterior flexion crease. Ambulates today with a slightly antalgic gait. Neurologic: Gross sensation is intact across both lower extremities by soft touch. Peripheral pulses are 2+. Results & Data Results & Data ([facility]) Diagnostic Findings Radiographic imaging previously obtained shows advanced DJD of the left hip. She has significant joint space loss as well as periarticular osteophytes. Code Status & VTE Plan VTE Prophylaxis Plan VTE Prophylaxis will be ordered: Yes
--- NOTE | 2021-02-15 08:00 | History & Physical Report ---
Date of Service February 15, 2021 Assessment & Plan (1) Degenerative joint disease of left hip: Plan: Postoperative prescriptions for Percocet and Coumadin will be provided at discharge from the hospital. Anticipate discharge to home with home health services. She already has a walker. She understands that is the case may be postponed due to bed space availability. The patient is aware of COVID-19 risks associated with surgery. She is currently asymptomatic of any COVID-19 symptoms. She will obtain her nasal swab testing on Monday. PDMP was checked and there are no concerning findings. Preoperative lab work was updated today. EKG and chest x-ray are up-to-date. History of Present Illness Chief Complaint: Left hip pain Primary Care Provider: Devi Isidro, This 75-year-old female presents for her preoperative history and physical. She is scheduled to undergo a left total hip arthroplasty with possible dual mobility cup on 02/17/2021. She was previously scheduled for total hip surgery on 01/12/2021, but was postponed secondary to bed availability status at the hospital. She has had left hip pain for several years. It has been slowly getting worse. 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 She is now walking with a walking stick or cane. Pain is worse with weightbearing. She notes soreness with sitting. She denies any numbness or tingling. She has tried conservative care measures including activity modification and oral pain medication without improvement. She elects to proceed with surgical intervention in hopes of improving her pain and function. Preoperative imaging has been obtained. She has already seen her PCP for medical clearance. Allergies Allergy/AdvReac Type Severity Reaction Status Date / Time Sulfa (Sulfonamide Allergy Severe Hives Verified 12/28/20 09:43 Antibiotics) Home Medications Medication Instructions Recorded Confirmed Type amlodipine 5 mg tablet 5 mg PO QAM 03/24/18 12/28/20 History glipizide 2.5 mg tablet, extended 5 mg PO BID 03/24/18 12/28/20 History release 24 hr lisinopril 20 mg tablet 20 mg PO QAM 03/24/18 12/28/20 History famotidine 20 mg tablet 20 mg PO BID 01/30/19 12/28/20 History amitriptyline 10 mg tablet 20 mg PO HS 01/31/19 12/28/20 History cholecalciferol (vitamin D3) 25 25 mcg PO PM 12/28/20 12/28/20 History mcg (1,000 unit) chewable tablet (Vitamin D3) prednisone 5 mg tablet 5 mg PO QAM 12/28/20 12/28/20 History carvedilol 3.125 mg tablet 3.125 mg PO BID 01/04/21 01/04/21 History Past Med/Surg History Medical History Borderline high cholesterol no meds BPPV (benign paroxysmal positional vertigo) CANNOT lie flat, gets severe balance problem and nausea Diabetes mellitus, type 2 NIDDM Glucose stable Gastroparesis GERD (gastroesophageal reflux disease) Diet dependent History of COVID-21 Mar 2020> tested at [facility] > chills, extreme exhaustion> not hospitalized Hypertension Polymyalgia rheumatica Follows with rheum (Dr. Lo) - stable per patient PONV (postoperative nausea and vomiting) severe> took a week to get over this last time Tachycardia Borderline tachy-yari syndrome, paroxysmal atrial tachycardia per records Controlled on low dose carvedilol Surgical History Fracture, sacrum/coccyx as child, had to have sacrum removed due to fx History of colonoscopy History of esophagogastroduodenoscopy (EGD) History of tooth extraction History of total knee replacement bilat Family History Mother Diabetes Father Diabetes Brother Diabetes Other Cancer Heart disease Stroke Social History (Updated 01/04/21 @ 16:57 by Petros Robledo PA-C) Smoking Status: Never smoker Second Hand Exposure: Yes (parents smoked); Hx Alcohol Use: No Hx Substance Use: No Preferred Language: Chinese Communication Ability: Effective Hearing Ability: Normal Supervisor [employer] Required: No Beliefs That Will Affect Care: None marital status: Current Living Situation: Spouse current occupational status: retired Feels Safe at Home: Yes Assistive Devices: Glasses Review of Systems Review of Systems: All systems reviewed & are unremarkable except as noted in HPI & below A total of 10 systems were reviewed. Physical Exam Physical Exam: Vitals: Height 158 cm, weight 65.4 kilograms, BMI 26.2, temperature 36.5, BP 126/76, pulse 62, and O2 sat 99% on room air. General: Well-developed, well-nourished, elderly female in no acute distress. Sitting in a chair. Alert and oriented. Skin: Warm and dry with good turgor. No rashes or lesions. No ecchymosis or erythema. HEENT: Normocephalic, atraumatic. Eyes: PERRLA, EOMI. Nares and oropharynx exams deferred due to COVID precautions. Heart: RRR, no MGR. Lungs: Clear to auscultation bilaterally. No crackles, rhonchi or wheezing. Good air movement. Abdomen: Mildly obese. Bowel sounds present x4, soft, nontender. No cardiomegaly. No masses. Musculoskeletal: Left hip evaluation continues to have no obvious asymmetry or deformity. She has limitations in motion secondary to pain. Hip flexion to around 100 degrees, external rotation of around 10 degrees, internal rotation to just past neutral. These are all limited by pain. No discomfort with palpation over the distal thigh, greater trochanter, gluteus or quadriceps. There is discomfort with palpation over the anterior flexion crease. Ambulating today with a slightly antalgic gait. Neurologic: Gross sensation is intact across both lower extremities by soft touch. Peripheral pulses are 2+. Results & Data Results & Data ([facility]) Diagnostic Findings Radiographic imaging previously obtained shows advanced DJD of the left hip. There is notable joint space loss as well as periarticular osteophytes. Code Status & VTE Plan VTE Prophylaxis Plan VTE Prophylaxis will be ordered: Yes
[~2021-02-17 08:25] MED LIST: BUPIVACAINE 0.5 % 5 MG/1 ML PF 10ML VIAL ONE; LR 500ML BOLUS, THEN 15ML/HR IV SCH; LR 60ML/HR IV SCH; ROPIVACAINE 0.5% HCL/PF 150 MG, BUPIVACAINE 0.75% MPF 20 ML, EPINEPHrine 0.15 MG, Ketor... INFIL SCH; TRANEXAMIC ACID 1,000 MG **IV Pre-op IV SCH; ceFAZolin 2000MG 2,000 MG/15 ML SYR IV SCH; methylPREDNISolone 125 MG/2 ML VIAL IV SCH; methylPREDNISolone 60 MG in SYRINGE 0 ML IV ONE
--- NOTE | 2021-02-17 08:49 | History & Physical Bridge Note ---
Date of Service February 17, 2021 History & Physical Bridge Note I have examined the patient, reviewed the History & Physical and in the interval since the performance of the History & Physical I have noted the following changes of clinical significance: consent obtained/site verified/covid screen negative.no changes noted
[2021-02-17] MEDS ORDERED: DEXAMETHASONE SOD INJ 4 MG/ML VIAL ONE (09:55)
[2021-02-17] MEDS ORDERED: ROCURONIUM BROMIDE 10 MG/ML 5 ML VIAL IV ONE (09:55)
[2021-02-17] MEDS ORDERED: METOCLOPRAMIDE HCL INJ 5 MG/ML 2 ML VIAL ONE (09:55)
[2021-02-17] MEDS ORDERED: ONDANSETRON INJ 2 MG/ML 2 ML VIAL ONE (09:55)
[2021-02-17] MEDS ORDERED: fentaNYL citrate 100 MCG/2 ML VIAL ONE (09:55)
[2021-02-17] MEDS ORDERED: PROPOFOL IV EMULSION 10 MG/ML 20 ML VIAL IV ONE ×2 (09:55→12:39)
[2021-02-17] MEDS ORDERED: PROMETHAZINE HCL 12.5 MG in SODIUM CHLORIDE 0.9% 50 ML IV PRN (10:23)
[2021-02-17] MEDS ORDERED: ATROPINE SULFATE 0.1 MG/ML 10ML SYR IV PRN (10:23)
[2021-02-17] MEDS ORDERED: METOCLOPRAMIDE HCL INJ 5 MG/ML 2 ML VIAL IV PRN ×2 (10:23→14:46)
[2021-02-17] MEDS ORDERED: HYDROmorphone INJ 2 MG/ML SYR/VIAL IV PRN (10:23)
[2021-02-17] MEDS ORDERED: fentaNYL citrate 100 MCG/2 ML VIAL IV PRN (10:23)
[2021-02-17] MEDS ORDERED: ePHEDrine sulfate 50 MG/ML AMP IV PRN (10:23)
[2021-02-17] MEDS ORDERED: ONDANSETRON INJ 2 MG/ML 2 ML VIAL IV PRN ×2 (10:23→14:46)
[2021-02-17] MEDS ORDERED: MIDAZOLAM HCL 1 MG/ML 2ML VIAL ONE (10:30)
[2021-02-17] MEDS ORDERED: ORTHO JOINT ANESTHETIC ONE (11:14)
[2021-02-17] MEDS ORDERED: ePHEDrine sulfate 50 MG/ML SYR ONE (12:30)
--- NOTE | 2021-02-17 13:15 | Post Operative Brief Note ---
Immediate Post Op Note v1 Date of Surgery February 17, 2021 Pre & Post Diagnosis Operation Date: 02/17/21 10:40 Pre-Op Diagnosis: Degenerative Joint Disease Left Hip Post-Op Diagnosis: Degenerative Joint Disease Left Hip I identified the patient and participated in the time-out.: Yes Procedure Operation Date: 02/17/21 10:40 Actual Procedures p Left Total Hip Dual Mobility Arthroplasty, Uncemented(Left) - Antoni Heart MD Surgeon Antoni Heart MD Space Studies Faculty Member Pk/Venkat/Km MS-2 Estimated Blood Loss 75 Findings Consistent with Post-Op Diagnosis
--- NOTE | 2021-02-17 13:28 | Operative Report ---
Post Operative Report Pre & Post Diagnosis Operation Date: 02/17/21 10:40 Pre-Op Diagnosis: Degenerative Joint Disease Left Hip Post-Op Diagnosis: Degenerative Joint Disease Left Hip I identified the patient and participated in the time-out.: Yes Procedure Operation Date: 02/17/21 10:40 Actual Procedures p Left Total Hip Dual Mobility Arthroplasty, Uncemented(Left) - Antoni Heart MD Surgeon MILTON Heart MD Insulation Supervisor Pk/Venkat/Km MS-2 Estimated Blood Loss 75 Findings Consistent with Post-Op Diagnosis see operative report Specimens see operative report Drains none Complications none Disposition Accompanied Patient To Recovery: Yes Indications This 75-year-old female presented to the office with complaints of intractable left hip pain. She had tried conservative care measures without improvement. She elected to proceed with surgical intervention after being educated about potential risks and outcomes. Preoperative imaging was obtained. Description of Procedure Patient was administered a spinal anesthetic and then taken to the operating room where she was given sedation. She was prepped and draped in the usual sterile fashion. Please see Dr. Heart's operative report for specifics of the procedure. I was present for the entire case from initial patient positioning through final wound closure. Assistance was provided in tissue retraction, hemostasis, trial implant placement, final implant placement, and final wound closure. Patient was taken to the recovery room in satisfactory con dition. I attest to the content of the Intraoperative Record and any orders documented therein. Any exceptions are noted below.
--- NOTE | 2021-02-17 13:29 | Operative Report ---
Post Operative Report Pre & Post Diagnosis Operation Date: 02/17/21 10:40 Pre-Op Diagnosis: Degenerative Joint Disease Left Hip Post-Op Diagnosis: Degenerative Joint Disease Left Hip I identified the patient and participated in the time-out.: Yes Procedure Operation Date: 02/17/21 10:40 Actual Procedures p Left Total Hip Dual Mobility Arthroplasty, Uncemented(Left) - Antoni Heart MD Surgeon [facility] Specialist Pk/Venkat/Km MS-2 Estimated Blood Loss 75 Findings Consistent with Post-Op Diagnosis Consistent with post op diagnosis Specimens No specimens Description of Procedure I participated in prepping dressing and assisted Dr. Heart during the procedure. Please se DR. Heart note I attest to the content of the Intraoperative Record and any orders documented therein. Any exceptions are noted below. Supervising Physician Co-Signing Physician Notes Dr. Heart
[2021-02-17] MEDS ORDERED: VANCOMYCIN HCL 1,000 MG in SODIUM CHLORIDE 0.9% 250 ML IV ONE (13:45)
--- NOTE | 2021-02-17 14:08 | Operative Report (OR) ---
DATE OF PROCEDURE: 02/17/2021 SURGEON: Antoni Heart MD. PELOTA MAKER: Magaly Whittington MD. SECOND PELOTA MAKER: Petros Robledo PA-C. THIRD PELOTA MAKER: Med student, Km, EMILIA. PREOPERATIVE DIAGNOSIS: Osteoarthritis, left hip. POSTOPERATIVE DIAGNOSIS: Osteoarthritis, left hip with dysplasia. OPERATION PERFORMED: Dual mobility left total hip replacement, noncemented. SUMMARY OF IMPLANTS: Size 50 cup hole eliminator, 6.5 x 25 screw, 22.2 x 43 poly liner, 22.25 +4 hea d, 4 high offset Tri-Lock, dual mobility liner [place] 50. ESTIMATED BLOOD LOSS: 50-75 mL. CRYSTALLOID: Per anesthesia. PATHOLOGY: Pending on bone. DVT prophylaxis per protocol. PERIOPERATIVE SITUATION: Medically cleared female with dysplasia of her hip and intractable osteoart hritis, wished to proceed with surgical treatment, total hip replacement. She has significant low ba ck arthritis and stiffness, so a dual mobility liner was the appropriate choice. DESCRIPTION OF PROCEDURE: The patient was appropriately identified, site verified, consent verified. Antibiotics were confirmed as being given. The patient was placed in the right lateral decubitus p osition. The left lower extremity was prepped and draped in usual routine fashion. A posterior appro ach to the hip was then made. Sharp dissection carried through skin, blunt dissection down to fascia . The IT band and gluteal obdulio fascia was then incised, retractor then placed to carefully open u p the wound and protect the sciatic nerve. The short external rotators were then cleaned of any soft tissue with a gauze dissection and then they were released and care taken to protect the sciatic ner ve with dissection. The capsule was then T'ed and preserved. The hip was then dislocated. The femoral neck resected. Acetabular exposure was excellent. There w as some minor retroversion of the cup. The anterior osteophyte was resected. The labrum was resecte d. Serial reaming carried up to a 50 and a 50 cup impacted into appropriate anteversion and inclinat ion. An additional 6.5 x 25 screw placed with excellent purchase. Trial liner was then seated. The hip was then flexed and internally rotated. The proximal femur prepared with picker box operator, canal find er, lateralizing rasp and serial broaching up to a 4 with a 4 fitting extremely well. Trial reductio n with a +4 neck was excellent. Leg lengths were within millimeters of equality and the stability wa s superb. The hip was then dislocated and the wound irrigated after all trial elements remaining needed to be r emoved and then once that was done, the hole eliminator seated, the permanent liner seated, permanent stem and head seated, and hip reduced. It was stable in all planes. Leg lengths were good. The wo und was then irrigated one final time with Betadine Pulsavac and then closed with #2 Vicryl for the c apsule and short external rotators, #2 Vicryl for the IT band and the gluteus obdulio fascia, couple of deep fat sutures with #2 Vicryl, then the subcutaneous layer with 2-0 Vicryl and stainless steel c lips. Appropriate dressing applied. The patient was transferred to recovery room in satisfactory co ndition, having tolerated the procedure well. Job ID: [id number]
--- NOTE | 2021-02-17 14:11 | Anesthesiology Progress Note ---
Date of Service February 17, 2021 Anesthesia Post Procedure Vital Signs Vital Signs: Temp Pulse Pulse Resp BP Pulse Ox 02/17/21 13:55 47 L 12 136/59 L 99 02/17/21 13:45 50 L 15 135/58 L 100 02/17/21 13:35 48 L 12 129/56 L 100 02/17/21 13:27 36 C L 59 L 17 134/57 L 100 02/17/21 13:05 47 L 14 141/60 H 95 02/17/21 09:31 36.7 C 51 L 18 160/62 H 100 02/17/21 08:53 36.9 C 62 20 178/71 H 100 Transfer of Care Handoff Completed per policy Notes Mental Status: alert / awake / arousable and participated in evaluation Patient Amnestic to Procedure: Yes Nausea / Vomiting: adequately controlled Pain: adequately controlled Airway Patency, RR, SpO2: stable & adequate BP & HR: stable & adequate Hydration State: stable & adequate Neuraxial Anesthesia: was administered and sensory block is resolving Anesthetic Complications: no major complications apparent
--- NOTE | 2021-02-17 14:16 | XRay Report ---
XR pelvis 1-2V routine HISTORY: 75 years-old Female S/P L YUSRA left hip total joint arthroplasty COMPARISON: Radiographs from 11/09/2020 TECHNIQUE: AP view of the pelvis FINDINGS: Left hip total joint arthroplasty. Lateral skin perlita are noted along with expected postoperative s oft tissue swelling and deep tissue air. No acute fracture or retained foreign body. Mild right hip o steoarthritis. Moderate degeneration of the pubic symphysis. No acute fracture or retained foreign jackie dy. Moderate fecal retention. IMPRESSION: Left hip total joint arthroplasty with expected postoperative changes. ACT 112: Negative or not required by law. The above report was generated using voice recognition software. It may contain grammatical, syntax o r spelling errors. Electronically signed by: Otis Hurst M.D. 02/17/2021 2:15 PM
--- NOTE | 2021-02-17 14:24 | Discharge Summary (DS) ---
DATE OF ADMISSION: 02/17/2021 DATE OF DISCHARGE: 02/18/2021 if she does well overnight. CHIEF COMPLAINT: Left hip pain. HISTORY OF PRESENT ILLNESS: Underwent elective left total hip replacement. Hospital course at this point has been uneventful. ALLERGIES: SULFA. HOME MEDICATIONS: Include amlodipine, glipizide, , famotidine, amitriptyline, vitamin D, prednisone, carvedilol. PAST MEDICAL HISTORY: Remarkable for hypercholesterolemia, positional vertigo, type 2 diabetes, gastroparesis, GERD, history of COVID-19 back in 03/2020, polymyalgia rheumatica, tachycardia. PAST SURGICAL HISTORY: Remarkable for fractured sacrum, colonoscopy, EGDs, tooth extraction, bilateral knee replacements, partial on the right and total on the left. FAMILY HISTORY: Remarkable for diabetes, cancer, heart disease and stroke. SOCIAL HISTORY: She does not smoke. She lives with her spouse. REVIEW OF SYSTEMS: Noncontributory. ASSESSMENT: Status post left total hip replacement with dual mobility components. At this point in time, discharge to home with services if she does well overnight. Deep venous thrombosis prophylaxis per protocol. Job ID: [id number] [facility]
[2021-02-17] MEDS ORDERED: ALUMINUM/MAGNESIUM SUSP 30 ML UDC PO PRN (14:46)
[2021-02-17] MEDS ORDERED: NALOXONE HCL 0.4 MG/1 ML VIAL/CARP IV PRN (14:46)
[2021-02-17] MEDS ORDERED: HYDROmorphone INJ 0.5 MG/0.5 ML SYR IV PRN (14:46)
[2021-02-17] MEDS ORDERED: MAGNESIUM HYDROXIDE SUSP 30 ML UDC PO PRN (14:46)
[2021-02-17] MEDS ORDERED: diphenhydrAMINE 50 MG/ML VIAL IV PRN (14:46)
[2021-02-17] MEDS ORDERED: bisacodyL 10 MG SUPP PR PRN (14:46)
[2021-02-17] MEDS ORDERED: SODIUM CHLORIDE 0.9% 1000ML 1,000 ML IV SCH (14:46)
[2021-02-17] MEDS ORDERED: oxyCODONE HCL IR 5 MG TAB (IMMEDIATE RELEASE) PO PRN (14:46)
[2021-02-17] MEDS ORDERED: ORTHO WARFARIN NOMOGRAM SCH (14:46)
--- NOTE | 2021-02-17 15:42 | Progress Notes ---
DATE OF SERVICE: 02/17/2021 SUBJECTIVE: Status post left total hip replacement with dual mobility implants. She is doing well. Denies chest pain, shortness of breath, fever, chills, nausea, vomiting or headache. OBJECTIVE: VITAL SIGNS: Stable. She is afebrile. Neurovascular check is limited by spinal. Wound dressing clean, dry and intact. Hip, supple range o f motion. Dressing clean, dry and intact. X-rays postop look excellent. ASSESSMENT: Status post left total hip replacement with dual mobility implants. Continue with prese nt care pathway. Discharge home tomorrow if she does well overnight. Job ID: [id number]
[2021-02-17] MEDS: INSULIN ASPART 100 UNITS/ML VIAL SC SCH ×2 (17:22→21:01)
[2021-02-17] MEDS: FERROUS GLUCONATE 324 MG TAB PO SCH (17:24)
[2021-02-17] MEDS: KETOROLAC TROMETHAMINE 15 MG/ML VIAL IV SCH ×2 (17:24→21:00)
[2021-02-17] MEDS: ASCORBIC ACID 500 MG TAB PO SCH (17:24)
[2021-02-17] MEDS: ACETAMINOPHEN 500 MG TAB PO SCH ×2 (17:24→20:59)
[2021-02-17] MEDS: ceFAZolin 2000MG 2,000 MG/15 ML SYR IV SCH (19:27)
[2021-02-17] MEDS ORDERED: TRANEXAMIC ACID / 0.7% NACL 1,000 MG/100 ML BAG IV SCH (19:30)
[2021-02-17] MEDS: carvediloL 3.125 MG TAB PO SCH (20:55)
[2021-02-17] MEDS: DOCUSATE SODIUM 100 MG CAP PO SCH (20:58)
[2021-02-17] MEDS: FAMOTIDINE 20 MG TAB PO SCH (20:59)
[2021-02-17] MEDS ORDERED: AMITRIPTYLINE HCL 10 MG TAB PO SCH (21:00)
[2021-02-17] MEDS ORDERED: SENNA 8.6 MG TAB PO SCH (21:00)
[2021-02-17] MEDS ORDERED: WARFARIN SOD 5 MG TAB PO ONE (23:06)
[2021-02-18] MEDS: KETOROLAC TROMETHAMINE 15 MG/ML VIAL IV SCH ×2 (03:39→10:32)
[2021-02-18] MEDS: ceFAZolin 2000MG 2,000 MG/15 ML SYR IV SCH (03:39)
[2021-02-18] MEDS: ACETAMINOPHEN 500 MG TAB PO SCH (06:13)
[2021-02-18 06:22] LABS: Basophils # (auto) 0.01 K/uL (0-0.2); Basophils % (auto) 0.1 %; Hematocrit (blood only) 31.8 % (37-47); Hemoglobin 10.5 g/dL (12.0-16.0); Immature Granulocytes # (auto) 0.02 K/uL (0.00-0.02); Immature Granulocytes % (auto) 0.2 %; Mean Corpuscular Hemoglobin 29.2 pg (25-34); Mean Corpuscular Volume 88.3 fL (80-100); Mean Platelet Volume 9.2 fL (7.4-10.4); Monocytes # (auto) 0.73 K/uL (0.11-0.59); Monocytes % (auto) 6.8 %; Neutrophils # (auto) 8.65 K/uL (1.4-6.5); Neutrophils % (auto) 79.9 %; Platelet Count 268 K/uL (130-400); RDW Coefficient of Variation 13.5 % (11.5-14.5); RDW Standard Deviation 43.8 fL (36.4-46.3); White Blood Count 10.81 K/uL (4.8-10.8)
[2021-02-18 07:14] LABS: Calcium 8.8 mg/dl (8.5-10.1); Creatinine Clr Calc Pharmacy 46.8 ml/min; Est GFR (African American) 74.5 ml/min; Est GFR (Non-African American) 64.3 ml/min; Potassium 4.4 mmol/L (3.5-5.1)
[2021-02-18] MEDS ORDERED: dexAMETHasone 1 MG TAB PO SCH (08:00)
[2021-02-18] MEDS: FERROUS GLUCONATE 324 MG TAB PO SCH (08:53)
[2021-02-18] MEDS: ASCORBIC ACID 500 MG TAB PO SCH (08:54)
[2021-02-18] MEDS: DOCUSATE SODIUM 100 MG CAP PO SCH (08:55)
[2021-02-18] MEDS: carvediloL 3.125 MG TAB PO SCH (08:56)
[2021-02-18] MEDS ORDERED: lisinopril 20 MG TAB PO SCH (09:00)
[2021-02-18] MEDS ORDERED: amLODIPine BESYLATE 5 MG TAB PO SCH (09:00)
[2021-02-18] MEDS ORDERED: MULTIVITAMIN TAB PO SCH (09:00)
[2021-02-18] MEDS: FAMOTIDINE 20 MG TAB PO SCH (09:03)
[2021-02-18] MEDS: INSULIN ASPART 100 UNITS/ML VIAL SC SCH ×2 (09:43→12:31)
--- NOTE | 2021-02-18 10:04 | Orthopedic Progress Note ---
Date of Service February 18, 2021 Assessment & Plan (1) S/P total left hip arthroplasty: Plan: Patient was seen in her room this morning. Postsurgical dressing was changed by me. Arrangements have been made for home health/PT. She will receive her Coumadin today prior to discharge. Continue with her exercises daily. Discharge to home after PT/OT today. Continue to use the walker for ambulation. Prescriptions for Percocet and Coumadin have been sent to her pharmacy. Written discharge instructions were provided. Admission and Anticipated Discharge Date Admission Date: February 17, 2021 Subjective Patient is seen in her room this morning. She states she did very well overnight. She has very little pain. She feels ready for discharge to home. She denies any chest pain, shortness of breath, nausea, vomiting, or abdominal pain. She has been out of bed several times. No additional complaints. Review of Systems Review of Systems: Unchanged from yesterday. Physical Exam Physical Exam: General: Well-developed, well-nourished, elderly female, in no acute distress. Sitting in bed. Alert and oriented. Conversive. No acute distress. Skin: Warm dry with good turgor. No rashes or lesions. No ecchymosis or erythema. Postsurgical dressing is in place on her left buttock. Upon removal of her dressing, surgical incision is closed. [place] are intact. Wound edges well approximated. No erythema or warmth. Minor ecchymosis is developing. No edema. No active bleeding. Musculoskeletal: Patient has supple motion of her left hip. She rises from the bed quite easily. She is able to take steps with her walker without difficulty. Motor function is intact to the knee, ankle, and toes. Neurologic: Gross sensation is intact across the left leg by soft touch. Results & Data ([facility]) Vital Signs (Past 12 Hours) Vital Signs Temp Pulse Pulse Resp BP Pulse Ox 02/18/21 08:58 63 02/18/21 06:00 36.5 C 53 L 16 119/48 L 97 Laboratory Results This morning's lab work reveals WBC is 10.8, hemoglobin 10.5, hematocrit 31.8. Electrolytes are unremarkable. Glucose this morning was 202. It reached a max of 300 yesterday afternoon. INR is pending.
[2021-02-18 10:59] LABS: INR 1.1 (0.9-1.1); Prothrombin Time 10.8 Seconds (9.0-12.0)
[2021-02-18] MEDS ORDERED: WARFARIN SOD 5 MG TAB PO ONE (12:24)
== END 2021-02-18 13:02 | disposition home health service (06) ==
LOC: PACUINP 08:25 → ASU 08:25 → ASUINP 02-18 09:01

== ENCOUNTER 2022-01-05 01:13 | Observation (INO) ==
[2022-01-05 01:51] LABS: Basophils % (auto) 0.3 %; Eosinophils % (auto) 0.9 %; Hematocrit (blood only) 40.5 % (34.1-44.9); Hemoglobin 13.7 g/dl (12.0-16.0); Immature Granulocytes % (auto) 0.3 %; Lymphocytes % (auto) 19.6 %; Mean Corpuscular Hemoglobin 29.3 pg (25.0-34.0); Mean Corpuscular Hgb Conc 33.8 g/dL (32.0-36.0); Mean Corpuscular Volume 86.5 fL (80.0-100.0); Mean Platelet Volume 9.4 fL (9.4-12.3); Monocytes % (auto) 7.1 %; Neutrophils # (auto) 7.33 K/uL (1.4-6.5); Neutrophils % (auto) 71.8 %; Platelet Count 303 K/uL (130-400); RDW Coefficient of Variation 13.2 % (11.5-14.5); RDW Standard Deviation 41.4 fL (36.4-46.3); Red Blood Count 4.68 M/uL (3.93-5.22)
[2022-01-05 01:52] LABS: Basophils # (auto) 0.03 K/uL (0-0.2); Eosinophils # (auto) 0.09 K/uL (0-0.50); Immature Granulocytes # (auto) 0.03 K/uL (0.00-0.02); Monocytes # (auto) 0.72 K/uL (0.24-0.82)
[2022-01-05 02:27] LABS: Albumin Globulin Ratio 2.3 (0.9-2); Albumin Level 4.4 gm/dl (3.4-5.0); Bilirubin,Total 1.1 mg/dl (0.2-1.0); Calcium 9.3 mg/dl (8.5-10.1); Creatinine Clr Calc Pharmacy 55.6 ml/min; Est GFR (Non-African American) 80.2 ml/min; Globulin 1.9 gm/dl (2.5-4.0); Potassium 4.1 mmol/L (3.5-5.1); Total Protein 6.3 gm/dl (6.0-8.3)
[2022-01-05] MEDS ORDERED: ONDANSETRON INJ 2 MG/ML 2 ML VIAL ONE (02:55)
[2022-01-05] MEDS ORDERED: ONDANSETRON INJ 2 MG/ML 2 ML VIAL IV STA (03:50)
[2022-01-05] MEDS ORDERED: SODIUM CHLORIDE 0.9% 1000ML 1,000 ML IV ONE (03:50)
[2022-01-05] MEDS ORDERED: FAMOTIDINE 20MG IV PUSH 20 MG/5 ML SYR IV STA (05:13)
[2022-01-05] MEDS ORDERED: METOCLOPRAMIDE HCL INJ 5 MG/ML 2 ML VIAL IV ONE (05:13)
--- NOTE | 2022-01-05 06:14 | Emergency Department Note ---
Impression & Plan Intractable nausea and vomiting Admit to the hospitalist ED Provider Note NAME: RIAN GARAY AGE: 76 SEX: F ARRIVES VIA: Walk-In INFORMANT: Patient and her daughter ED PROVIDER(S): Odalys Kim DO CHIEF COMPLAINT: Nausea and vomiting PLAN: Disposition: Admit to the hospitalist Condition: Fair MEDICAL DECISION MAKING: This is a 76-year-old female patient who presents to the emergency department with nausea and vomiting. The patient has a longstanding history of significant dizziness/nausea with lying flat. She underwent a balance test at [facility] earlier today which resulted in severe dizziness, nausea and vomiting. Patient has been unable to keep anything down throughout the entire day. Laboratory studies were drawn here and she was given IV crystalloid therapy and multiple antiemetics but her nausea and dry heaving persist. Triage Nursing notes reviewed and agree with them. Additional history obtained from the patient's daughter who is at the bedside Vital Signs: reviewed and remarkable for mild hypertension Differential diagnosis: Benign positional vertigo, posterior circulation stroke. ER treatment provided: IV normal saline bolus IV Zofran IV Pepcid IV Reglan Diagnostics interpreted by me: Cardiac Monitoring: Normal sinus rhythm at a rate of 60 Laboratory studies: See below HPI: 76/F arrives for evaluation of nausea and vomiting. The patient underwent a balance test today around 2:00 this afternoon at [facility] in [place]. This required her to lie flat and caused her severe nausea. This has been an ongoing issue for the patient for the past 3 years where lying flat makes her significantly dizzy. ROS: See above HPI for pertinent positives & negatives. A total of 10 systems reviewed and were otherwise negative. PAST MEDICAL HISTORY:See Below PAST SURGICAL HISTORY:See Below FAMILY HISTORY:See Below SOCIAL HISTORY:See Below HOME MEDICATIONS:See list ALLERGIES:See list VITALS:See Below PHYSICAL EXAMINATION: HEENT: Head - normocephalic and atraumatic. Pupils are equal, round, and react mireya to light. Extraocular eye muscles are intact, and sclera are anicteric. Nose - moist nasal mucosa without discharge. Mouth - moist buccal mucosa. Oropharynx is nonerythematous and there is no tonsillar exudate or edema noted. Neck: Supple; no cervical lymphadenopathy Heart: Regular rate and rhythm. There is a normal S1 and S2 with no murmurs, clicks, or gallops appreciated. Lungs: Clear to auscultation bilaterally with no wheezes, rales, or rhonchi. Abdomen: Soft, completely nontender, nondistended, with good bowel sounds. There are no palpable pulsatile masses or hepatosplenomegaly. There is no guarding, rigidity, or rebound noted. Extremities: No evidence of cyanosis, clubbing, or edema. There are easily palpable peripheral pulses. Skin: warm and dry with good turgor and no rashes. ED COURSE: Times/Reassessments: 315: The patient was evaluated in room B5. A complete history and physical was performed. An order was placed for continuous cardiac monitoring. The patient was in a normal sinus rhythm at a rate of 60. An IV lock was initiated and labs were drawn as above. The patient was bolused with a liter of normal saline solution. She was given 4 mg of IV Zofran. Patient describes some epigastric burning was given a dose of IV Pepcid. She tried to rest but could not get comfortable. She tried moving around in the bed and the nausea was exacerbated. She was given a dose of IV Phenergan. I discussed the case with the hospitalist and they will evaluate for intractable nausea/vomiting. Odalys Kim DO Past Med/Surg History Medical History (Updated 01/06/22 @ 08:58 by Odalys Kim DO) Borderline high cholesterol BPPV (benign paroxysmal positional vertigo) Severe balance problem and nausea Diabetes mellitus, type 2 NIDDM Gastroparesis GERD (gastroesophageal reflux disease) History of COVID-19 03/2020 > Symptoms at time: chills, extreme exhaustion>RESOLVED Hypertension Polymyalgia rheumatica Follows with rheum (Dr. 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 PONV (postoperative nausea and vomiting) severe > "took a week" to get over this *SEVERE NAUSEA WHEN LAYING FLAT Family History Mother Diabetes Father Diabetes Brother Diabetes Other Cancer Heart disease Stroke Social History Smoking Status: Never smoker Second Hand Exposure: Yes (parents); Hx Alcohol Use: No Hx Substance Use: No Preferred Language: Danish Communication Ability: Effective Hearing Ability: Normal Body Worker Required: No Beliefs That Will Affect Care: None marital status: Current Living Situation: Spouse Current Living Situation Comment: Lives at home with her current occupational status: retired Other Information That Helps Us Care for You: No Feels Safe at Home: Yes Safety Concerns: Feels Safe At This Time Assistive Devices: Cane and Glasses Allergies Allergies Allergy/AdvReac Type Severity Reaction Status Date / Time Sulfa (Sulfonamide Allergy Intermediate Hives Verified 01/05/22 02:02 Antibiotics) Home Meds Home Medications Medication Instructions Recorded Confirmed lisinopril 20 mg tablet 20 mg PO BID 03/24/18 01/05/22 famotidine 20 mg tablet 20 mg PO BID 01/30/19 01/05/22 cholecalciferol (vitamin D3) 25 25 mcg PO PM 12/28/20 01/05/22 mcg (1,000 unit) chewable tablet (Vitamin D3) carvedilol 3.125 mg tablet 3.125 mg PO BID 01/04/21 01/05/22 atorvastatin 20 mg tablet 20 mg PO QAM 12/16/21 01/05/22 duloxetine 20 mg capsule,delayed 20 mg PO DAILY 12/16/21 01/05/22 release (Cymbalta) loratadine 10 mg tablet (Claritin) 10 mg PO QAM 12/16/21 01/05/22 metformin 500 mg tablet 500 mg PO DAILY 12/16/21 01/05/22 pantoprazole 40 mg tablet,delayed 40 mg PO QAM 12/16/21 01/05/22 release amlodipine 2.5 mg tablet 2.5 mg PO DAILY 01/05/22 01/05/22 glipizide 10 mg tablet, extended 10 mg PO DAILY 01/05/22 01/05/22 release 24 hr prednisone 1 mg tablet 1 mg PO DAILY 01/05/22 01/05/22 promethazine 25 mg tablet 25 mg PO Q8H PRN n/v 01/05/22 01/05/22 Results & Data (ED) Vital Signs Vital Signs - 24 hr 01/05/22 01:17 01/05/22 01:36 01/05/22 01:36 Temperature 36.3 C L Temperature Source Temporal Artery Scan Pulse Rate 70 70 Pulse Rate [Left] 70 Pulse Rhythm Regular Respiratory Rate 18 20 20 Respiratory Effort / Characteristics Non-Labored Respiratory Depth Normal Blood Pressure 172/63 H Blood Pressure [Left Arm] 147/66 H Blood Pressure Mean 99 Blood Pressure Mean [Left Arm] 93 Blood Pressure Position [Left Arm] Lying Pulse Oximetry 98 98 98 Oxygen Delivery Method Room Air Room Air Room Air Sepsis Recent Fever Within 48 Hours No Sepsis New/Unexplained Change in Mental Status N/A Sepsis Action Taken by Nursing No Action Required 01/05/22 03:30 01/05/22 04:30 01/05/22 05:00 Temperature Temperature Source Pulse Rate Pulse Rate [Left] 72 48 L 56 L Pulse Rhythm Respiratory Rate 16 16 18 Respiratory Effort / Characteristics Non-Labored Spontaneous Non-Labored Spontaneous Respiratory Depth Normal Normal Blood Pressure Blood Pressure [Left Arm] 142/59 H 134/52 L 174/54 H Blood Pressure Mean Blood Pressure Mean [Left Arm] 86 79 94 Blood Pressure Position [Left Arm] Pulse Oximetry 96 99 98 Oxygen Delivery Method Room Air Room Air Room Air Sepsis Recent Fever Within 48 Hours Sepsis New/Unexplained Change in Mental Status Sepsis Action Taken by Nursing 01/05/22 05:30 Temperature Temperature Source Pulse Rate Pulse Rate [Left] 60 Pulse Rhythm Respiratory Rate 18 Respiratory Effort / Characteristics Respiratory Depth Blood Pressure Blood Pressure [Left Arm] 152/65 H Blood Pressure Mean Blood Pressure Mean [Left Arm] 94 Blood Pressure Position [Left Arm] Pulse Oximetry 98 Oxygen Delivery Method Room Air Sepsis Recent Fever Within 48 Hours Sepsis New/Unexplained Change in Mental Status Sepsis Action Taken by Nursing Laboratory Data Result diagrams: 01/06/22 06:44 01/06/22 06:44 Lab Results 01/05/22 01/05/22 01/05/22 Range/Units 01:33 01:33 06:45 WBC 10.20 (4.8-10.8) K/ul RBC 4.68 (3.93-5.22) M/uL Hgb 13.7 (12.0-16.0) g/dl Hct 40.5 (34.1-44.9) % MCV 86.5 (80.0-100.0) fL MCH 29.3 (25.0-34.0) pg MCHC 33.8 (32.0-36.0) g/dL RDW Std Deviation 41.4 (36.4-46.3) fL RDW Coeff of Breanna 13.2 (11.5-14.5) % Plt Count 303 (130-400) K/uL MPV 9.4 (9.4-12.3) fL Immature Gran % (Auto) 0.3 % Neut % (Auto) 71.8 % Lymph % (Auto) 19.6 % Hand % (Auto) 7.1 % Eos % (Auto) 0.9 % Baso % (Auto) 0.3 % Neut # (Auto) 7.33 H (1.4-6.5) K/uL Lymph # (Auto) 2.00 (1.2-3.4) K/uL Hand # (Auto) 0.72 (0.24-0.82) K/uL Eos # (Auto) 0.09 (0-0.50) K/uL Baso # (Auto) 0.03 (0-0.2) K/uL Immature Gran # (Auto) 0.03 H (0.00-0.02) K/uL Sodium 137 (136-145) mmol/L Potassium 4.1 (3.5-5.1) mmol/L Chloride 101 (98-107) mmol/L Carbon Dioxide 27 (21-32) mmol/L Anion Gap 9 (3-11) BUN 18 (6-23) mg/dl Creatinine 0.72 (0.6-1.2) mg/dl Est Cr Clr Drug Dosing 55.6 ml/min Est GFR ( Amer) 93.0 ml/min Est GFR (Non-Af Amer) 80.2 ml/min BUN/Creatinine Ratio 25.0 H (10-20) Glucose 95 (70-99(Fasting)) mg/dl Calcium 9.3 (8.5-10.1) mg/dl Total Bilirubin 1.1 H (0.2-1.0) mg/dl AST 12 L (13-39) U/L ALT 11 (7-52) U/L Alkaline Phosphatase 109 H (34-104) U/L Total Protein 6.3 (6.0-8.3) gm/dl Albumin 4.4 (3.4-5.0) gm/dl Globulin 1.9 L (2.5-4.0) gm/dl Albumin/Globulin Ratio 2.3 H (0.9-2) SARS-CoV-2, RNA, NAAT NEGATIVE (NEGATIVE) Administered Medications Amlodipine Besylate (Amlodipine Besylate 5 Mg Tab) 2.5 mg PO DAILY SALINA Stop: 02/05/22 08:59 Last Admin: 01/06/22 08:32 Dose: 2.5 mg Documented By: DEANN Atorvastatin Calcium (Atorvastatin 20 Mg Tab) 20 mg PO QAM SALINA Stop: 02/05/22 08:59 Last Admin: 01/06/22 08:31 Dose: 20 mg Documented By: DEANN Carvedilol (Carvedilol 3.125 Mg Tab) 3.125 mg PO BID SALINA Stop: 02/04/22 20:59 Last Admin: 01/06/22 08:31 Dose: 3.125 mg Documented By: Admin: 01/05/22 19:27 Dose: 3.125 mg Documented By: GUICHO Duloxetine HCl (Duloxetine Hcl 20 Mg Cap) 20 mg PO DAILY SALINA Stop: 02/05/22 08:59 Last Admin: 01/06/22 08:31 Dose: 20 mg Documented By: DEANN Enoxaparin Sodium (Enoxaparin Inj 40 Mg/0.4 Ml Syr) 40 mg SQ HS SALINA Stop: 02/04/22 20:59 Last Admin: 01/05/22 19:26 Dose: 40 mg Documented By: GUICHO Famotidine (Famotidine 20 Mg Tab) 20 mg PO BID SALINA Stop: 02/04/22 20:59 Last Admin: 01/06/22 08:33 Dose: Not Given Documented By: Admin: 01/05/22 19:28 Dose: 20 mg Documented By: GIUCHO Insulin Aspart (Insulin Aspart Per Unit) 0 units SC ACHS SALINA Stop: 02/04/22 16:29 Last Admin: 01/06/22 08:38 Dose: 3 units Documented By: DEANN Co-signed By: SAM Admin: 01/05/22 19:25 Dose: Not Given Documented By: Admin: 01/05/22 17:15 Dose: 1 units Documented By: JOEL Co-signed By: YAN Lisinopril (Lisinopril 20 Mg Tab) 20 mg PO BID SALINA Stop: 02/04/22 20:59 Last Admin: 01/06/22 08:31 Dose: 20 mg Documented By: Admin: 01/05/22 19:29 Dose: 20 mg Documented By: GUICHO Loratadine (Loratadine 10 Mg Tab) 10 mg PO QA SALINA Stop: 02/05/22 08:59 Last Admin: 01/06/22 08:32 Dose: 10 mg Documented By: DEANN Pantoprazole Sodium (Pantoprazole 40 Mg Tab) 40 mg PO [facility] Stop: 02/04/22 10:49 Last Admin: 01/06/22 08:31 Dose: 40 mg Documented By: Admin: 01/05/22 12:43 Dose: 40 mg Documented By: LAVINIA Polyethylene Glycol (Polyethylene (Miralax) 17 Gm Pack) 17 gm PO DAILY SALINA Stop: 02/04/22 10:49 Last Admin: 01/06/22 08:33 Dose: Not Given Documented By: Admin: 01/05/22 12:43 Dose: 17 gm Documented By: LAVINIA Prednisone (Prednisone 1 Mg Tab) 1 mg PO DAILY [facility]INA Stop: 02/05/22 08:59 Last Admin: 01/06/22 08:31 Dose: 1 mg Documented By: DEANN Vitamin D (Cholecalciferol 1,000 Units 25 Mcg Tab) 1,000 units PO PM SALINA Stop: 02/04/22 20:59 Last Admin: 01/05/22 19:26 Dose: 1,000 units Documented By: GUICHO Discontinued Medications Amlodipine Besylate (Amlodipine Besylate 5 Mg Tab) 2.5 mg PO NOW ONE Stop: 01/05/22 09:16 Last Admin: 01/05/22 11:06 Dose: 2.5 mg Documented By: LYN Carvedilol (Carvedilol 3.125 Mg Tab) 3.125 mg PO NOW ONE Stop: 01/05/22 09:16 Last Admin: 01/05/22 11:06 Dose: Not Given Documented By: LYN Sodium Chloride (Nss 1000ml) 1,000 mls @ 999 mls/hr IV .Q1H1M ONE Stop: 01/05/22 04:50 Last Infusion: 01/05/22 04:58 Dose: 0 mls/hr Documented By: Admin: 01/05/22 03:56 Dose: 999 mls/hr Documented By: MARIO Famotidine (Pepcid 20mg Iv Push) 20 mg in 5 mls @ 2.5 mls/min IV NOW STA Stop: 01/05/22 05:14 Last Admin: 01/05/22 05:17 Dose: 2.5 mls/min Documented By: AN Sodium Chloride (Nss) 500 mls @ 125 mls/hr IV .Q4H SALINA Stop: 02/04/22 06:44 Last Admin: 01/05/22 11:30 Dose: Not Given Documented By: Infusion: 01/05/22 11:10 Dose: 0 mls/hr Documented By: Admin: 01/05/22 06:50 Dose: 125 mls/hr Documented By: MARIO Promethazine HCl (Phenergan) 12.5 mg in 50.5 mls @ 202 mls/hr IV NOW STA Stop: 01/05/22 06:57 Last Infusion: 01/05/22 07:05 Dose: 0 mls/hr Documented By: Admin: 01/05/22 06:50 Dose: 202 mls/hr Documented By: AN Lactated Ringer's (Lr) 1,000 mls @ 80 mls/hr IV .[id number] SALINA Stop: 01/05/22 23:19 Last Infusion: 01/06/22 01:11 Dose: 0 mls/hr Documented By: Admin: 01/05/22 11:30 Dose: 80 mls/hr Documented By: LAVINIA Lisinopril (Lisinopril 20 Mg Tab) 20 mg PO NOW STA Stop: 01/05/22 09:16 Last Admin: 01/05/22 11:06 Dose: 20 mg Documented By: LYN Metoclopramide HCl (Metoclopramide Hcl Inj 5 Mg/Ml 2 Ml Vial) 5 mg IV ONE ONE Stop: 01/05/22 05:14 Last Admin: 01/05/22 05:16 Dose: 5 mg Documented By: MARIO Ondansetron HCl (Ondansetron Inj 2 Mg/Ml 2 Ml Vial) Confirm Administered Dose 4 mg .ROUTE .STK-MED ONE Stop: 01/05/22 02:56 Last Admin: 01/05/22 02:57 Dose: 4 mg Documented By: GOLDIE Ondansetron HCl (Ondansetron Inj 2 Mg/Ml 2 Ml Vial) 4 mg IV NOW STA Stop: 01/05/22 03:51 Last Admin: 01/05/22 03:56 Dose: 4 mg Documented By: MARIO Prednisone (Prednisone 1 Mg Tab) 1 mg PO NOW STA Stop: 01/05/22 09:17 Last Admin: 01/05/22 11:06 Dose: 1 mg Documented By: LYN Discharge Plan Visit Data Chief Complaint: Nausea Stated Complaint: VOMITTING, NAUSEA, ED Provider: Odalys Kim Discharge Problem: Intractable nausea and vomiting Patient Disposition: Admitted As Inpatient Discharge Instructions Interventions: ED Discharge Assessment Last Done: 01/05/22 10:51
[2022-01-05] MEDS ORDERED: PROMETHAZINE 12.5 MG/50.5 ML BAG IV STA (06:43)
[2022-01-05] MEDS: SODIUM CHLORIDE 0.9% 500 ML IV SCH ×2 (06:50→11:30)
[2022-01-05] MEDS ORDERED: amLODIPine BESYLATE 5 MG TAB PO ONE (09:15)
[2022-01-05] MEDS ORDERED: lisinopril 20 MG TAB PO STA (09:15)
[2022-01-05] MEDS ORDERED: carvediloL 3.125 MG TAB PO ONE (09:15)
[2022-01-05] MEDS ORDERED: predniSONE 1 MG TAB PO STA (09:16)
--- NOTE | 2022-01-05 09:33 | History & Physical Report ---
Date of Service January 05, 2022 Assessment & Plan (1) N&V (nausea and vomiting): (2) Gait instability: (3) Diabetes mellitus, type 2: (4) Polymyalgia rheumatica: (5) Hypertension: Plan This is a 76-year-old female who has a significant past medical history of T2DM, HTN, HLD, PMR Currently tapering off prednisone, diabetic gastroparesis, chronic constipation, history of PAT, HALIE who presents to ED secondary to nausea and vomiting x1 day. Chronic Nausea and Vomiting with lying flat Chronic gait instability pt is improved since arrival but not at baseline currently is following Neurology regarding her chronic n/v with lying flat and gait instability so far w/u has been unrevealing - MRI internal aud canal WNL, Carotid duplex + atherosclerotic hard plaque but no sign stenosis, Audiogram: mild SNHL, balance center with PT at [facility] revealed no vestibular dysfunction will treat pt for supportive care IVF x 1 L, antiemetics consult PT/OT for safe discharge do not lie patient flat as this will exacerbate sx clear liquid diet and advance as tolerated to diabetic/heart healthy diet would recommend close OP follow up with neurology, PCP T2DM last a1c 7.6, adequate given age hold metformin, glipizide given poor po intake will just monitor accuchecks for now, no coverage will implement novolog if consistently elevated HTN bp elevated due to missed meds, give home meds now continue coreg, lisinopril, amlodipine PMR follows [facility] Dr. Fernandes tapering off prednisone, 1mg dialy HLD continue statin Chronic constipation Diabetic gastroparesis follows GI miralax daily, last BM Wednesday 01/03, typically goes q4days Hx of PAT Early signs of TBS per last cardiology note on 12/31 continue coreg monitor on tele DVT ppx: SQ Lovenox Dispo: admit under obs for supportive care, PT/OT, anticipate d/c to home tomorrow if all goes well FULL CODE PCP: Abby Pt was seen and examined in collaboration with Dr. Gonzalez, please see addendum History of Present Illness Chief Complaint: N/V x 1 day. Primary Care Provider: Martha Mora MD This is a 76-year-old female who has a significant past medical history of T2 DM, HTN, HLD, PMR Currently tapering off prednisone, diabetic gastroparesis, chronic constipation, history of PAT, HALIE who presents to ED secondary to nausea and vomiting x1 day. Of significance patient has been dealing with chronic nausea and vomiting while laying flat for several years. She has also been undergoing work-up for gait instability. She follows with [facility] neurology. She has undergone a MRI of her internal auditory canal which was negative and showed normal cranial nerves. She also underwent carotid duplex which showed some calcified plaque but otherwise no significant stenosis, audiogram which showed mild SNHL and also follows with cardiology due to early signs of TBS. So far her work-up for her chronic gait instability, nausea and vomiting has been unrevealing. Yesterday she was seen and evaluated at [facility] by physical therapy. They evaluated her and as soon as they tried to lay her flat she developed significant nausea and vomiting. She does not get dizziness or other vertigo-like sensations with lying flat or head movements, just nausea and vomiting. She states she cannot lie flat and when she does she gets immediate nausea and vomiting that last for at least a day. She started vomiting immediately during her evaluation yesterday. Her evaluation at the vestibular clinic was benign and they do not feel that she is suffering from any vestibular dysfunction. She has been nauseous and vomited several times since. She is unable to tolerate anything orally up until this point. She came into ER due to ill feeling. She denies any recent illness, fever, chills, sweats, lightheadedness, dizziness, syncope, change in vision, change in hearing, tinnitus, fall, recent URI symptoms, chest pain, shortness of breath, cough, hemoptysis, dysuria, increased urgency or frequency with urination, melena or hematochezia. She does have chronic epigastric discomfort despite taking Pepcid and pantoprazole. In ED patient remained hemodynamically stable although mildly hypertensive. She did not take her medications last night or this morning. Her CBC and CMP was generally unremarkable. She received IV Zofran, Phenergan and R eglan. She has not vomited since yesterday and currently does feel improved, but not back to baseline. Allergies Allergy/AdvReac Type Severity Reaction Status Date / Time Sulfa (Sulfonamide Allergy Intermediate Hives Verified 01/05/22 02:02 Antibiotics) Home Medications Medication Instructions Recorded Confirmed Type lisinopril 20 mg tablet 20 mg PO BID 03/24/18 01/05/22 History famotidine 20 mg tablet 20 mg PO BID 01/30/19 01/05/22 History cholecalciferol (vitamin D3) 25 25 mcg PO PM 12/28/20 01/05/22 History mcg (1,000 unit) chewable tablet (Vitamin D3) carvedilol 3.125 mg tablet 3.125 mg PO BID 01/04/21 01/05/22 History atorvastatin 20 mg tablet 20 mg PO QAM 12/16/21 01/05/22 History duloxetine 20 mg capsule,delayed 20 mg PO DAILY 12/16/21 01/05/22 History release (Cymbalta) loratadine 10 mg tablet (Claritin) 10 mg PO QAM 12/16/21 01/05/22 History metformin 500 mg tablet 500 mg PO DAILY 12/16/21 01/05/22 History pantoprazole 40 mg tablet,delayed 40 mg PO QAM 12/16/21 01/05/22 History release amlodipine 2.5 mg tablet 2.5 mg PO DAILY 01/05/22 01/05/22 History glipizide 10 mg tablet, extended 10 mg PO DAILY 01/05/22 01/05/22 History release 24 hr prednisone 1 mg tablet 1 mg PO DAILY 01/05/22 01/05/22 History promethazine 25 mg tablet 25 mg PO Q8H PRN n/v 01/05/22 01/05/22 History Past Med/Surg History Medical History (Updated 01/05/22 @ 09:49 by Trish Montiel PA-C) Borderline high cholesterol BPPV (benign paroxysmal positional vertigo) Severe balance problem and nausea Diabetes mellitus, type 2 NIDDM Gastroparesis GERD (gastroesophageal reflux disease) History of COVID-19 03/2020 > Symptoms at time: chills, extreme exhaustion>RESOLVED Hypertension Polymyalgia rheumatica Follows with rheum (Dr. 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 PONV (postoperative nausea and vomiting) severe > "took a week" to get over this *SEVERE NAUSEA WHEN LAYING FLAT Family History Mother Diabetes Father Diabetes Brother Diabetes Other Cancer Heart disease Stroke Social History Smoking Status: Never smoker Second Hand Exposure: Yes (parents); Hx Alcohol Use: No Hx Substance Use: No Preferred Language: Lao Communication Ability: Effective Hearing Ability: Normal 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 Required: No Beliefs That Will Affect Care: None marital status: Current Living Situation: Spouse Current Living Situation Comment: Lives at home with her current occupational status: retired Other Information That Helps Us Care for You: No Feels Safe at Home: Yes Safety Concerns: Feels Safe At This Time Assistive Devices: Cane and Glasses Review of Systems Review of Systems: All systems reviewed & are unremarkable except as noted in HPI & below Physical Exam Physical Exam: Constitutional: WD/WN, vitals as above, NAD, sitting up in bed, pleasant, conversing easily Head: Normocephalic, Atraumatic Eyes: PERRL, conjunctivae normal, anicteric sclerae ENMT: external ear and nose normal, oropharynx normal Neck: trachea midline, no thyromegaly normal visual inspection Respiratory: normal respiratory effort, lungs clear to auscultation, no wheeze, rales, rhonchi. Normal insp/exp effort, no accessory muscle use Cardiovascular: RRR, no murmur, no edema Vessels: no JVD or carotid bruit Chest: normal inspection of chest Abdomen: normal bowel sounds, soft, epigastric tenderness to palpation, no hepatosplenomegaly Musculoskeletal: no cyanosis or clubbing, extremities motor strength 5/5 Skin: no rashes, warm and dry normal turgor Neurologic: PERRL, EOMI, accommodation nl, no face palsy, no dysarthria CN's II-XI intact bilaterally and moves all extremities Psychiatric: A+Ox3, euthymic affect Lymphatic: no cervical or axillary lymphadenopathy : deferred Results & Data Results & Data ([facility]) Vital Signs (Past 12 Hours) Vital Signs Temp Pulse Pulse Resp BP BP Pulse Ox 01/05/22 09:07 56 L 14 96 01/05/22 09:07 162/60 H 01/05/22 09:00 64 18 01/05/22 08:30 59 L 17 01/05/22 08:00 67 01/05/22 07:30 55 L 15 98 01/05/22 07:30 177/68 H 01/05/22 07:00 52 L 15 98 01/05/22 07:00 164/70 H 01/05/22 06:30 59 L 19 98 01/05/22 06:30 140/59 L 01/05/22 06:00 57 L 15 98 01/05/22 06:00 142/61 H 01/05/22 05:30 60 15 97 01/05/22 05:30 152/65 H 01/05/22 05:01 59 L 22 98 01/05/22 05:01 174/54 H 01/05/22 05:00 68 12 99 01/05/22 04:30 44 L 17 96 01/05/22 04:30 134/52 L 01/05/22 04:02 48 L 15 99 01/05/22 06:30 65 18 140/59 L 98 01/05/22 05:30 60 18 152/65 H 98 01/05/22 05:00 56 L 18 174/54 H 98 01/05/22 04:30 48 L 16 134/52 L 99 01/05/22 03:30 72 16 142/59 H 96 01/05/22 01:36 70 20 98 01/05/22 01:36 70 20 147/66 H 98 01/05/22 01:17 36.3 C L 70 18 172/63 H 98 O2 Del Method 01/05/22 09:07 01/05/22 09:07 01/05/22 09:00 01/05/22 08:30 01/05/22 08:00 01/05/22 07:30 01/05/22 07:30 01/05/22 07:00 01/05/22 07:00 01/05/22 06:30 01/05/22 06:30 01/05/22 06:00 01/05/22 06:00 01/05/22 05:30 01/05/22 05:30 01/05/22 05:01 01/05/22 05:01 01/05/22 05:00 01/05/22 04:30 01/05/22 04:30 01/05/22 04:02 01/05/22 06:30 Room Air 01/05/22 05:30 Room Air 01/05/22 05:00 Room Air 01/05/22 04:30 Room Air 01/05/22 03:30 Room Air 01/05/22 01:36 Room Air 01/05/22 01:36 Room Air 01/05/22 01:17 Room Air Medications Administered Medication List Sodium Chloride (Nss) 500 mls @ 125 mls/hr IV .Q4H SALINA Stop: 02/04/22 06:44 Last Admin: 01/05/22 06:50 Dose: 125 mls/hr Documented By: AN Discontinued Medications Sodium Chloride (Nss 1000ml) 1,000 mls @ 999 mls/hr IV .Q1H1M ONE Stop: 01/05/22 04:50 Last Infusion: 01/05/22 04:58 Dose: 0 mls/hr Documented By: Admin: 01/05/22 03:56 Dose: 999 mls/hr Documented By: AN Famotidine (Pepcid 20mg Iv Push) 20 mg in 5 mls @ 2.5 mls/min IV NOW STA Stop: 01/05/22 05:14 Last Admin: 01/05/22 05:17 Dose: 2.5 mls/min Documented By: AN Promethazine HCl (Phenergan) 12.5 mg in 50.5 mls @ 202 mls/hr IV NOW STA Stop: 01/05/22 06:57 Last Infusion: 01/05/22 07:05 Dose: 0 mls/hr Documented By: Admin: 01/05/22 06:50 Dose: 202 mls/hr Documented By: AN Metoclopramide HCl (Metoclopramide Hcl Inj 5 Mg/Ml 2 Ml Vial) 5 mg IV ONE ONE Stop: 01/05/22 05:14 Last Admin: 01/05/22 05:16 Dose: 5 mg Documented By: AN Ondansetron HCl (Ondansetron Inj 2 Mg/Ml 2 Ml Vial) Confirm Administered Dose 4 mg .ROUTE .STK-MED ONE Stop: 01/05/22 02:56 Last Admin: 01/05/22 02:57 Dose: 4 mg Documented By: GOLDIE Ondansetron HCl (Ondansetron Inj 2 Mg/Ml 2 Ml Vial) 4 mg IV NOW STA Stop: 01/05/22 03:51 Last Admin: 01/05/22 03:56 Dose: 4 mg Documented By: MARIO COVID-19 Results Results COVID-19 Adm Lab Results: RBC 4.68 M/uL (3.93-5.22) 01/05/22 WBC 10.20 K/ul (4.8-10.8) 01/05/22 Hgb 13.7 g/dl (12.0-16.0) 01/05/22 Hct 40.5 % (34.1-44.9) 01/05/22 Plt Count 303 K/uL (130-400) 01/05/22 Neutrophils (%) (Auto) 71.8 % 01/05/22 Lymphocytes (%) (Auto) 19.6 % 01/05/22 Monocytes # (Auto) 0.72 K/uL (0.24-0.82) 01/05/22 Eosinophils # (Auto) 0.09 K/uL (0-0.50) 01/05/22 Immature Granulocyte % (Auto) 0.3 % 01/05/22 Neutrophils # (Auto) 7.33 K/uL (1.4-6.5) H 01/05/22 Lymphocytes # (Auto) 2.00 K/uL (1.2-3.4) 01/05/22 Monocytes # (Auto) 0.72 K/uL (0.24-0.82) 01/05/22 Eosinophils # (Auto) 0.09 K/uL (0-0.50) 01/05/22 Basophils # (Auto) 0.03 K/uL (0-0.2) 01/05/22 Immature Granulocyte # (Auto) 0.03 K/uL (0.00-0.02) H 01/05 Na 137 mmol/L (136-145) 01/05/22 K 4.1 mmol/L (3.5-5.1) 01/05/22 Cl 101 mmol/L (98-107) 01/05/22 CO2 27 mmol/L (21-32) 01/05/22 Anion Gap 9 (3-11) 01/05/22 BUN 18 mg/dl (6-23) 01/05/22 Creatinine 0.72 mg/dl (0.6-1.2) 01/05/22 BUN/Creatinine Ratio 25.0 (10-20) H 01/05/22 Glucose Level 95 mg/dl (70-99(Fasting)) 01/05/22 Ca 9.3 mg/dl (8.5-10.1) 01/05/22 Total Bilirubin 1.1 mg/dl (0.2-1.0) H 01/05/22 AST/SGOT 12 U/L (13-39) L 01/05/22 ALT/SGPT 11 U/L (7-52) 01/05/22 Alkaline Phosphatase 109 U/L (34-104) H 01/05/22 Total Protein 6.3 gm/dl (6.0-8.3) 01/05/22 Albumin 4.4 gm/dl (3.4-5.0) 01/05/22 Globulin 1.9 gm/dl (2.5-4.0) L 01/05/22 Albumin/Globulin Ratio 2.3 (0.9-2) H 01/05/22 SARS-CoV-2, RNA, NAAT NEGATIVE (NEGATIVE) 01/05/22 Code Status & VTE Plan Code Status Full Code VTE Prophylaxis Plan VTE Prophylaxis will be ordered: Yes Supervising Physician Co-Signing Physician Notes Patient seen and examined. 76-year-old woman with history of DM type II, hypertension, hyperlipidemia, PMR being tapered off prednisone, diabetic gastroparesis, GERD who presented with intractable nausea and vomiting after therapy at [facility] yesterday. Patient has chronic nausea and vomiting usually triggered in supine position. Reports improving symptoms. Still has nausea but no vomiting and tolerating clears Exam notable for mild epigastric tenderness. Labs grossly unremarkable unremarkable. Continue supportive care with antiemetics as needed Continue IV fluids Will advance diet as tolerated. Diet changed to carb controlled diet. Start sliding scale Agree with other plans as detailed by Trish Montiel PA-C
[2022-01-05] MEDS ORDERED: DEXTROSE 50% 50 ML SYRINGE IV PRN (10:50)
[2022-01-05] MEDS ORDERED: GLUCAGON FOR INJ 1 MG VIAL SQ PRN (10:50)
[2022-01-05] MEDS ORDERED: GLUCOSE 40% GEL 15 GM TUBE PO PRN (10:50)
[2022-01-05] MEDS ORDERED: CARBOHYDRATES FOR HYPOGLYCEMIA PO PRN ×2 (10:50→15:18)
[2022-01-05] MEDS ORDERED: POLYETHYLENE (MIRALAX) 17 GM PACK PO PRN (10:50)
[2022-01-05] MEDS ORDERED: GLUCOSE 10 TAB/TUBE PO PRN (10:50)
[2022-01-05] MEDS ORDERED: ONDANSETRON INJ 2 MG/ML 2 ML VIAL IV PRN (10:50)
[2022-01-05] MEDS ORDERED: ACETAMINOPHEN 325 MG TAB PO PRN (10:50)
[2022-01-05] MEDS ORDERED: ALUMINUM/MAGNESIUM SUSP 30 ML UDC PO PRN (10:50)
[2022-01-05] MEDS ORDERED: MAGNESIUM HYDROXIDE SUSP 30 ML UDC PO PRN (10:50)
[2022-01-05] MEDS ORDERED: LACTATED RINGER'S 1,000 ML IV SCH (10:50)
[2022-01-05] MEDS: PANTOprazole 40 MG TAB PO SCH (12:43)
[2022-01-05] MEDS: POLYETHYLENE (MIRALAX) 17 GM PACK PO SCH (12:43)
[2022-01-05] MEDS: INSULIN ASPART PER UNIT SC SCH ×2 (17:15→19:25)
[2022-01-05] MEDS: carvediloL 3.125 MG TAB PO SCH (19:27)
[2022-01-05] MEDS: FAMOTIDINE 20 MG TAB PO SCH (19:28)
[2022-01-05] MEDS: lisinopril 20 MG TAB PO SCH (19:29)
[2022-01-05] MEDS ORDERED: CHOLECALCIFEROL 1,000 UNITS 25 MCG TAB PO SCH (21:00)
[2022-01-05] MEDS ORDERED: ENOXAPARIN INJ 40 MG/0.4 ML SYR SQ SCH (21:00)
[2022-01-06 07:21] LABS: Basophils # (auto) 0.03 K/uL (0-0.2); Basophils % (auto) 0.4 %; Eosinophils # (auto) 0.09 K/uL (0-0.50); Eosinophils % (auto) 1.2 %; Hematocrit (blood only) 34.5 % (34.1-44.9); Hemoglobin 11.4 g/dl (12.0-16.0); Immature Granulocytes # (auto) 0.02 K/uL (0.00-0.02); Immature Granulocytes % (auto) 0.3 %; Lymphocytes # (auto) 1.83 K/uL (1.2-3.4); Lymphocytes % (auto) 24.2 %; Mean Corpuscular Hemoglobin 28.8 pg (25.0-34.0); Mean Corpuscular Volume 87.1 fL (80.0-100.0); Mean Platelet Volume 9.9 fL (9.4-12.3); Monocytes # (auto) 0.58 K/uL (0.24-0.82); Monocytes % (auto) 7.7 %; Neutrophils % (auto) 66.2 %; Platelet Count 223 K/uL (130-400); RDW Coefficient of Variation 13.2 % (11.5-14.5); RDW Standard Deviation 41.7 fL (36.4-46.3); Red Blood Count 3.96 M/uL (3.93-5.22); White Blood Count 7.55 K/ul (4.8-10.8)
[2022-01-06 07:49] LABS: Albumin Globulin Ratio 2.2 (0.9-2); Albumin Level 3.5 gm/dl (3.4-5.0); BUN Creatinine Ratio 19.2 (10-20); Bilirubin,Total 0.7 mg/dl (0.2-1.0); Calcium 8.5 mg/dl (8.5-10.1); Creatinine Clr Calc Pharmacy 59.3 ml/min; Est GFR (African American) 91.4 ml/min; Est GFR (Non-African American) 78.9 ml/min; Globulin 1.6 gm/dl (2.5-4.0); Magnesium 1.6 mg/dl (1.7-2.4); Total Protein 5.1 gm/dl (6.0-8.3)
[2022-01-06 08:07] LABS: Estimated Average Glucose 192 mg/dl; Hemoglobin A1C 8.3 % (4.5-5.6)
[2022-01-06] MEDS: carvediloL 3.125 MG TAB PO SCH (08:31)
[2022-01-06] MEDS: lisinopril 20 MG TAB PO SCH (08:31)
[2022-01-06] MEDS: PANTOprazole 40 MG TAB PO SCH (08:31)
[2022-01-06] MEDS: FAMOTIDINE 20 MG TAB PO SCH (08:33)
[2022-01-06] MEDS: POLYETHYLENE (MIRALAX) 17 GM PACK PO SCH (08:33)
[2022-01-06] MEDS: INSULIN ASPART PER UNIT SC SCH ×2 (08:38→12:13)
[2022-01-06] MEDS ORDERED: predniSONE 1 MG TAB PO SCH (09:00)
[2022-01-06] MEDS ORDERED: ATORVASTATIN 20 MG TAB PO SCH (09:00)
[2022-01-06] MEDS ORDERED: amLODIPine BESYLATE 5 MG TAB PO SCH (09:00)
[2022-01-06] MEDS ORDERED: DULoxetine HCL 20 MG CAP PO SCH (09:00)
[2022-01-06] MEDS ORDERED: LORATADINE 10 MG TAB PO SCH (09:00)
[2022-01-06] MEDS: MAGNESIUM SULFATE / D5W 1 GM/100 ML BAG IV SCH ×2 (09:49→11:39)
--- NOTE | 2022-01-06 14:24 | Discharge Summary ---
Discharge Summary Date of Service January 06, 2022 Notes For Next Care Provider Patient needs follow-up with PCP as a part of transition of care evaluation. Patient will need to maintain follow-up with her outpatient neurology for her ongoing problems with gait instability. Medication Changes From Visit None. Admission HPI Per Admitting Provider This is a 76-year-old female who has a significant past medical history of T2DM, HTN, HLD, PMR Currently tapering off prednisone, diabetic gastroparesis, chronic constipation, history of PAT, HALIE who presents to ED secondary to nausea and vomiting x1 day. Of significance patient has been dealing with chronic nausea and vomiting while laying flat for several years. She has also been undergoing work-up for gait instability. She follows with [facility] neurology. She has undergone a MRI of her internal auditory canal which was negative and showed normal cranial nerves. She also underwent carotid duplex which showed some calcified plaque but otherwise no significant stenosis, audiogram which showed mild SNHL and also follows with cardiology due to early signs of TBS. So far her work-up for her chronic gait instability, nausea and vomiting has been unrevealing. Yesterday she was seen and evaluated at [facility] by physical therapy. They evaluated her and as soon as they tried to lay her flat she developed significant nausea and vomiting. She does not get dizziness or other vertigo-like sensations with lying flat or head movements, just nausea and vomiting. She states she cannot lie flat and when she does she gets immediate nausea and vomiting that last for at least a day. She started vomiting immediately during her evaluation yesterday. Her evaluation at the vestibular clinic was benign and they do not feel that she is suffering from any vestibular dysfunction. She has been nauseous and vomited several times since. She is unable to tolerate anything orally up until this point. She came into ER due to ill feeling. She denies any recent illness, fever, chills, sweats, lightheadedness, dizziness, syncope, change in vision, change in hearing, tinnitus, fall, recent URI symptoms, chest pain, shortness of breath, cough, hemoptysis, dysuria, increased urgency or frequency with urination, melena or hematochezia. She does have chronic epigastric discomfort despite taking Pepcid and pantoprazole. In ED patient remained hemodynamically stable although mildly hypertensive. She did not take her medications last night or this morning. Her CBC and CMP was generally unremarkable. She received IV Zofran, Phenergan and Reglan. She has not vomited since yesterday and currently does feel improved, but not back to baseline. Admission Exam Per Admitting Provider Constitutional: WD/WN, vitals as above, NAD, sitting up in bed, pleasant, conversing easily Head: Normocephalic, Atraumatic Eyes: PERRL, conjunctivae normal, anicteric sclerae ENMT: external ear and nose normal, oropharynx normal Neck: trachea midline, no thyromegaly normal visual inspection Respiratory: normal respiratory effort, lungs clear to auscultation, no wheeze, rales, rhonchi. Normal insp/exp effort, no accessory muscle use Cardiovascular: RRR, no murmur, no edema Vessels: no JVD or carotid bruit Chest: normal inspection of chest Abdomen: normal bowel sounds, soft, epigastric tenderness to palpation, no hepatosplenomegaly Musculoskeletal: no cyanosis or clubbing, extremities motor strength 5/5 Skin: no rashes, warm and dry normal turgor Neurologic: PERRL, EOMI, accommodation nl, no face palsy, no dysarthria CN's II-XI intact bilaterally and moves all extremities Psychiatric: A+Ox3, euthymic affect Lymphatic: no cervical or axillary lymphadenopathy : deferred Principal Dx & Hospital Course #1 = Principal Diagnosis (1) N&V (nausea and vomiting): (2) Gait instability: (3) Diabetes mellitus, type 2: (4) Polymyalgia rheumatica: (5) Hypertension: Plan This is a 76-year-old female who has a significant past medical history of T2DM, HTN, HLD, PMR Currently tapering off prednisone, diabetic gastroparesis, chronic constipation, history of PAT, HALIE who presents to ED secondary to nausea and vomiting x1 day. She was managed for the following: Chronic Nausea and Vomiting with lying flat Chronic gait instability pt is improved since arrival and is at her baseline on bedside exam. currently is following Neurology regarding her chronic n/v with lying flat and gait instability so far w/u has been unrevealing - MRI internal aud canal WNL, Carotid duplex + atherosclerotic hard plaque but no sign stenosis, Audiogram: mild SNHL, balance center with PT at [facility] revealed no vestibular dysfunction Supportive care with IV fluids and antiemetics received, PT/OT evaluated. Patient reports feeling better and would like to go home. Do not lie patient flat as this will exacerbate her symptoms. Patient is tolerating diet well. Patient to follow-up with her PCP and neurology as an outpatient. T2DM c/w metformin, glipizide. F/u w/ PCP. A1c 8.3. HTN bp elevated due to missed meds, give home meds now continue coreg, lisinopril, amlodipine PMR follows [facility] Dr. Fernandes tapering off prednisone, 1mg dialy HLD continue statin Chronic constipation Diabetic gastroparesis follows GI miralax daily, last BM Wednesday 01/03, typically goes q4days Hx of PAT Early signs of TBS per last cardiology note on 12/31 continue coreg monitor on tele DVT ppx: SQ Lovenox FULL CODE PCP: Abby Pt being dicharged to home w/ following instructions at point of discharge: Follow-up with your primary care physician within a week time. Continue to maintain close follow-up with outpatient neurology. Follow-up with your PCP for close management of your diabetes. Take your medications as prescribed. Discharge Exam GENERAL: Alert and oriented x3. NAD, on RA. HEENT: No pallor, no icterus. Pupils equal, round and reactive to light. Oral mucosa moist. NECK: No JVD, no neck masses. HEART: S1 and S2 heard. Regular rate and rhythm. No murmur, no gallop. RESPIRATORY SYSTEM: Normal AP diameter. No accessory muscle use. No wheezing, no crackles. ABDOMEN: Soft, bowel sounds present, nontender, no distention. CENTRAL NERVOUS SYSTEM: No facial droop. Speech is clear. Obeys simple com mands. Moves extremities. EXTREMITIES: No edema, no erythema seen. Updated Medication List Medication Instructions Recorded Confirmed Type lisinopril 20 mg tablet 20 mg PO BID 03/24/18 01/05/22 History famotidine 20 mg tablet 20 mg PO BID 01/30/19 01/05/22 History cholecalciferol (vitamin D3) 25 25 mcg PO PM 12/28/20 01/05/22 History mcg (1,000 unit) chewable tablet (Vitamin D3) carvedilol 3.125 mg tablet 3.125 mg PO BID 01/04/21 01/05/22 History atorvastatin 20 mg tablet 20 mg PO QAM 12/16/21 01/05/22 History duloxetine 20 mg capsule,delayed 20 mg PO DAILY 12/16/21 01/05/22 History release (Cymbalta) loratadine 10 mg tablet (Claritin) 10 mg PO QAM 12/16/21 01/05/22 History metformin 500 mg tablet 500 mg PO DAILY 12/16/21 01/05/22 History pantoprazole 40 mg tablet,delayed 40 mg PO QAM 12/16/21 01/05/22 History release amlodipine 2.5 mg tablet 2.5 mg PO DAILY 01/05/22 01/05/22 History glipizide 10 mg tablet, extended 10 mg PO DAILY 01/05/22 01/05/22 History release 24 hr prednisone 1 mg tablet 1 mg PO DAILY 01/05/22 01/05/22 History promethazine 25 mg tablet 25 mg PO Q8H PRN n/v 01/05/22 01/05/22 History Hospital Stay Data Consultations 01/05/22 06:52 ED Decision to Admit Stat Pending Results Patient Have Any Pending Studies at Discharge: No Discharge Instructions Given to Patient (Per Discharging Provider) Follow-up with your primary care physician within a week time. Continue to maintain close follow-up with outpatient neurology. Follow-up with your PCP for close management of your diabetes. Take your medications as prescribed. Total Time Total Time Spent Total Time Spent (In Minutes): 40
== END 2022-01-06 14:39 | disposition home or self-care (01) ==
LOC: ED 01:13 → EDINP 01:13 → SUATTDRO 08:30 → EDINP 10:51 → 2N 14:52
DX: M35.3 Polymyalgia rheumatica; E11.43 Type 2 diabetes mellitus with diabetic autonomic (poly)neuropathy; I10 Essential (primary) hypertension; R26.9 Unspecified abnormalities of gait and mobility; Z79.84 Long term (current) use of oral hypoglycemic drugs; Z79.52 Long term (current) use of systemic steroids; Z79.899 Other long term (current) drug therapy; Z88.2 Allergy status to sulfonamides; R11.2 Nausea with vomiting, unspecified

== ENCOUNTER 2024-07-19 12:28 | Inpatient (IN) ==
[2024-07-19 13:31] LABS: Basophils # (auto) 0.02 K/uL (0.00-0.20); Basophils % (auto) 0.3 %; Eosinophils % (auto) 3.4 %; Hematocrit (blood only) 36.8 % (37.0-47.0); Hemoglobin 12.3 g/dl (12.0-16.0); Immature Granulocytes # (auto) 0.01 K/uL (0.01-0.20); Immature Granulocytes % (auto) 0.2 %; Lymphocytes # (auto) 1.66 K/uL (1.20-3.40); Lymphocytes % (auto) 28.4 %; Mean Corpuscular Hemoglobin 27.8 pg (25.0-34.0); Mean Corpuscular Hgb Conc 33.4 g/dL (32.0-36.0); Mean Corpuscular Volume 83.3 fL (80.0-100.0); Mean Platelet Volume 9.5 fL (9.4-12.4); Monocytes # (auto) 0.44 K/uL (0.11-0.59); Monocytes % (auto) 7.5 %; Neutrophils # (auto) 3.52 K/uL (1.40-6.50); Neutrophils % (auto) 60.2 %; Platelet Count 270 K/uL (130-400); RDW Coefficient of Variation 13.1 % (11.5-14.5); RDW Standard Deviation 39.8 fL (36.4-46.3); Red Blood Count 4.42 M/uL (4.20-5.40); White Blood Count 5.85 K/ul (4.8-10.8)
--- NOTE | 2024-07-19 13:43 | XRay Report ---
XR chest 1V not portable CLINICAL HISTORY: Chest pain, nonspecific COMPARISON STUDY: 03/26/2023 FINDINGS: Stable mild cardiomegaly without pulmonary vascular congestion. No effusion, consolidation, or pneumothorax. Stable mild scoliosis. IMPRESSION: No acute findings. ACT 112: Negative or not required by law. Electronically signed by: Barber Richey M.D. 07/19/2024 1:41 PM
[2024-07-19 13:51] LABS: Albumin Globulin Ratio 1.8 (0.9-2); Albumin Level 4.3 gm/dl (3.4-5.0); BUN Creatinine Ratio 19.3 (10-20); Bilirubin,Total 0.6 mg/dl (0.2-1.0); Calcium 9.5 mg/dl (8.6-10.3); Creatinine Clr Calc Pharmacy 35.5 ml/min; Globulin 2.4 gm/dl (2.5-4.0); Potassium 4.2 mmol/L (3.5-5.1); Total Protein 6.7 gm/dl (6.0-8.3)
[2024-07-19 13:56] LABS: Troponin I High Sensitivity 5.4 pg/ml (0-14)
[2024-07-19 13:58] LABS: Partial Thromboplastin Ratio 0.9; Partial Thromboplastin Time 25 Seconds (21-31); Prothrombin Time 10.4 Seconds (9.0-12.0)
--- NOTE | 2024-07-19 14:32 | Electrocardiogram Report ---
Test Reason : Blood Pressure : */* mmHG Vent. Rate : 54 BPM Atrial Rate : 54 BPM P-R Int : 172 ms QRS Dur : 96 ms QT Int : 442 ms P-R-T Axes : 40 -32 47 degrees QTcB Int : 419 ms Sinus bradycardia Left axis deviation Low voltage QRS Incomplete right bundle branch block Abnormal ECG When compared with ECG of 11-May-2021 22:00, QT has shortened Confirmed by Dariusz Meredith ([id number]) on 07/19/2024 2:32:22 PM Referred By: Confirmed By: Dariusz Meredith
--- NOTE | 2024-07-19 15:45 | Emergency Department Note ---
Impression & Plan SPAIN (dyspnea on exertion), Palpitations, SOB (shortness of breath), Dizziness ED Provider Note NAME: RIAN GARAY AGE: 78 SEX: F : 1945 ARRIVES VIA: Walk-In INFORMANT: [Patient] ED PROVIDER(S): [Robbin Bean MD] CHIEF COMPLAINT: Shortness of breath, palpitations HISTORY OF PRESENT ILLNESS: The patient is an 78-year-old female who presents with a week of shortness of breath and palpitations. Her chest feels heavy. She notices the symptoms primarily with exertion. The patient has not noticed cough, there has been no fever. She has no diagnosed lung disease. She has never had a DVT or PE. With the dyspnea, the patient spoke with her cardiology office, she was referred to the ER for presumed hospitalization, monitoring and further workup. PMHx/PSHx/Social Hx: See Below PHYSICAL EXAM: GENERAL: Patient is in no acute distress. HEENT: No acute trauma, normocephalic atraumatic, mucous membranes moist, no nasal congestion. NECK: No stridor, no adenopathy, no meningismus, trachea is midline. LUNGS: Clear to auscultation bilaterally, no wheeze, no rhonchi, breath sounds equal. HEART: Subtle systolic murmur, mildly bradycardic, regular rhythm. ABDOMEN: Soft, nontender, no peritonitis. EXTREMITIES: No cyanosis, full range of motion of all the joints without pain or difficulty. NEUROLOGIC: Oriented x 3, no acute motor or sensory deficits, no focal weakness. SKIN: No jaundice, no diaphoresis. DIFFERENTIAL DIAGNOSIS: Bronchitis or pneumonia, CHF, dysrhythmia, cardiac ischemia, anemia, PE, among others. EMERGENCY DEPARTMENT PROCEDURES: MEDICAL DECISION MAKING: There is no leukocytosis or worrisome anemia. There is a normal platelet count. No coagulopathy. No renal failure or significant electrolyte abnormality. No concerning liver enzyme elevation. The patient appeared to be in a euthyroid state. ECG showed a sinus bradycardia, no ischemia. Cardiac enzyme testing x 1 is not consistent with acute cardiac injury. BNP is slightly elevated consistent with potential fluid overload. Chest x-ray does not show pneumonia or CHF. COVID, influenza and RSV test were negative. Bilateral lower extremity ultrasound did not show findings of DVT. Patient presents with palpitations, some dizziness, some weakness, dyspnea on exertion. Her symptoms are present with exertion but seem to resolve at rest. The patient is certainly at risk for cardiac ischemia or dysrhythmia. Given her presentation, given her age, hospitalization was felt warranted. She requires monitoring, a cardiology consult/workup. I did discuss the possibility of PE, the patient states that she cannot undergo a CT of the chest because she is unable to lie flat. Possibly, while hospitalized, she may be able to tolerate a VQ scan. I spoke with the patient and case management. The on-call hospitalist was consulted. Prior/Outside records/notes reviewed: Outpatient cardiology notes from today describing her presentation, their concerns and the need for an ED referral. ECG per my interpretation: Indication was dyspnea and shortness of breath. The ECG shows a sinus bradycardia with a rate of 54. There is an incomplete right bundle branch block present. There is no ST elevation, no PVCs. A potential old septal infarct is noted. QTc was 419. Continuous Cardiac Monitoring per my interpretation: An order was placed for continuous cardiac monitoring. The monitor shows a rate of 51 with sinus bradycardia. Imaging/x-ray results per my interpretation: Chest x-ray does not show CHF, pneumonia or pneumothorax. Chronic Medical/Social conditions affecting care: Advanced age. Care/Management discussed with: Case management, the on-call hospitalist. Level of care consideration(s): After review of the information above and other included data: --I believe the patient requires escalation of care to admission DISPOSITION: Admission Past Med/Surg History Problem List (Updated 07/19/24 @ 20:38 by Robbin Bean MD) Dizziness (Acute) SOB (shortness of breath) (Acute) Palpitations (Acute) SPAIN (dyspnea on exertion) (Acute) History of tachycardia-bradycardia syndrome Shortness of breath Palpitations S/P total left hip arthroplasty Degenerative joint disease of left hip Polymyalgia rheumatica Follows with rheum (Dr. Lo) - stable per patient Diabetes mellitus, type 2 NIDDM Vertigo (Acute) HTN (hypertension) Medical History Hx of basal cell carcinoma Polymyalgia rheumatica f/u roland schaefer HTN (hypertension) Diabetes mellitus, type 2 IDDM BPPV (benign paroxysmal positional vertigo) Severe balance problem and nausea GERD (gastroesophageal reflux disease) History of COVID-19 03/2020 > Symptoms at time: chills, extreme exhaustion>RESOLVED 04/2024 > resolved Gastroparesis Tachycardia Borderline tachy-yari syndrome, paroxysmal atrial tachycardia per records, controlled on low dose carvedilol; f/u roland ponce cardio Borderline high cholesterol Surgical History History of lumpectomy of right breast benign Hx of basal cell carcinoma excision Hx of bilateral cataract extraction Family history of reaction to anesthesia DAUGHTER>SEVERE NAUSEA History of total hip replacement LEFT Fracture, sacrum/coccyx as child, had to have sacrum removed due to fx PONV (postoperative nausea and vomiting) severe > "took a week" to get over this *SEVERE NAUSEA WHEN LAYING FLAT History of total knee replacement R/L History of esophagogastroduodenoscopy (EGD) History of colonoscopy History of tooth extraction Family History Mother Diabetes Father Diabetes Brother Diabetes Other Cancer Heart disease Stroke Social History Smoking Status: Never smoker Second Hand Exposure: Yes (hx growing up); Do You Dip or Chew Tobacco: No; Hx Alcohol Use: No Hx Substance Use: No Preferred Language: Maori Communication Ability: Effective Hearing Ability: Normal Cutter And Edge Trimmer Required: No Beliefs That Will Affect Care: None marital status: Current Living Situation: Alone Current Living Situation Comment: Lives at home with her current occupational status: retired Feels Safe at Home: Yes Assistive Devices: Glasses and Other Allergies Allergies Allergy/AdvReac Type Severity Reaction Status Date / Time Sulfa (Sulfonamide Allergy Intermediate Hives Verified 06/11/24 06:19 Antibiotics) Home Meds Home Medications Medication Instructions Recorded Confirmed lisinopril 20 mg tablet 20 mg PO BID 03/24/18 07/19/24 famotidine 20 mg tablet 20 mg PO HS 01/30/19 07/19/24 carvedilol 3.125 mg tablet 3.125 mg PO BID 01/04/21 07/19/24 amlodipine 5 mg tablet 5 mg PO QAM 03/26/23 07/19/24 amoxicillin 500 mg capsule 2,000 mg PO DIRECTED PRN 1 HOUR 03/26/23 07/19/24 PRIOR TO DENTAL PROCEDURES cholecalciferol (vitamin D3) 125 125 mcg PO QAM 03/26/23 07/19/24 mcg (5,000 unit) tablet (Vitamin D3) hydrochlorothiazide 12.5 mg capsule 25 mg PO QAM 03/26/23 07/19/24 insulin glargine 100 unit/mL (3 18 unit subcut QAM 03/26/23 07/19/24 mL) subcutaneous pen (Lantus Solostar U-100 Insulin) aspirin 81 mg capsule 81 mg PO QAM 05/30/24 07/19/24 cyanocobalamin (vitamin B-12) 500 500 mcg PO QAM 05/30/24 07/19/24 mcg tablet (Vitamin B-12) multivitamin with minerals-folic 1 tab PO QAM 05/30/24 07/19/24 acid 80 mcg chewable tablet (Centrum MultiGummies Women) pantoprazole 40 mg tablet,delayed 40 mg PO DAILY 07/19/24 07/19/24 release Results & Data (ED) Vital Signs Vital Signs - 24 hr 07/19/24 12:51 07/19/24 15:10 07/19/24 15:10 Temperature 36.5 C Temperature Source Temporal Artery Scan Pulse Rate 48 L Pulse Rate [Apical] 56 L Pulse Rhythm Pulse Rhythm [Apical] Regular Pulse Strength [Apical] Normal Respiratory Rate 16 20 Respiratory Effort / Characteristics Non-Labored Spontaneous Non-Labored Spontaneous Respiratory Depth Normal Normal Respiratory Pattern Regular Blood Pressure 130/52 L Blood Pressure [Right Arm] 142/84 H Blood Pressure Mean 78 Blood Pressure Mean [Right Arm] 103 Blood Pressure Position [Right Arm] Lying Pulse Oximetry 98 95 Oxygen Delivery Method Room Air Room Air Room Air Sepsis Recent Fever Within 48 Hours No Sepsis New/Unexplained Change in Mental Status No Sepsis Action Taken by Nursing No Action Required 07/19/24 15:10 07/19/24 15:57 07/19/24 17:00 Temperature Temperature Source Pulse Rate 51 L 57 L Pulse Rate [Apical] 53 L Pulse Rhythm Regular Pulse Rhythm [Apical] Regular Pulse Strength [Apical] Normal Respiratory Rate 19 17 Respiratory Effort / Characteristics Non-Labored Spontaneous Respiratory Depth Normal Respiratory Pattern Regular Blood Pressure Blood Pressure [Right Arm] 145/69 H Blood Pressure Mean Blood Pressure Mean [Right Arm] 94 Blood Pressure Position [Right Arm] Lying Pulse Oximetry 96 99 Oxygen Delivery Method Room Air Room Air Sepsis Recent Fever Within 48 Hours Sepsis New/Unexplained Change in Mental Status Sepsis Action Taken by Nursing 07/19/24 18:23 07/19/24 20:00 Temperature Temperature Source Pulse Rate Pulse Rate [Apical] 56 L 52 L Pulse Rhythm Pulse Rhythm [Apical] Regular Regular Pulse Strength [Apical] Normal Normal Respiratory Rate 20 15 Respiratory Effort / Characteristics Non-Labored Spontaneous Non-Labored Spontaneous Respiratory Depth Normal Normal Respiratory Pattern Regular Regular Blood Pressure Blood Pressure [Right Arm] 160/67 H 122/55 L Blood Pressure Mean Blood Pressure Mean [Right Arm] 98 77 Blood Pressure Position [Right Arm] Lying Lying Pulse Oximetry 98 94 Oxygen Delivery Method Room Air Room Air Sepsis Recent Fever Within 48 Hours Sepsis New/Unexplained Change in Mental Status Sepsis Action Taken by Snf Medications Current Medication List: was personally reviewed by me Laboratory Data Attestation: I reviewed the patient's lab results. 07/19/24 13:04 07/19/24 13:04 Lab Results 07/19/24 07/19/24 Range/Units 13:04 15:13 WBC 5.85 (4.8-10.8) K/ul RBC 4.42 (4.20-5.40) M/uL Hgb 12.3 (12.0-16.0) g/dl Hct 36.8 L (37.0-47.0) % MCV 83.3 (80.0-100.0) fL MCH 27.8 (25.0-34.0) pg MCHC 33.4 (32.0-36.0) g/dL RDW Std Deviation 39.8 (36.4-46.3) fL RDW Coeff of Breanna 13.1 (11.5-14.5) % Plt Count 270 (130-400) K/uL MPV 9.5 (9.4-12.4) fL Immature Gran % (Auto) 0.2 % Neut % (Auto) 60.2 % Lymph % (Auto) 28.4 % Wheeler % (Auto) 7.5 % Eos % (Auto) 3.4 % Baso % (Auto) 0.3 % Neut # (Auto) 3.52 (1.40-6.50) K/uL Lymph # (Auto) 1.66 (1.20-3.40) K/uL Wheeler # (Auto) 0.44 (0.11-0.59) K/uL Eos # (Auto) 0.20 (0.00-0.50) K/uL Baso # (Auto) 0.02 (0.00-0.20) K/uL Immature Gran # (Auto) 0.01 (0.01-0.20) K/uL PT 10.4 (9.0-12.0) Seconds INR 1.0 (0.9-1.1) APTT 25 (21-31) Seconds PTT Ratio 0.9 Sodium 134 L (136-145) mmol/L Potassium 4.2 (3.5-5.1) mmol/L Chloride 98 (98-107) mmol/L Carbon Dioxide 30 (21-32) mmol/L Anion Gap 6 (3-11) BUN 21 (6-23) mg/dl Creatinine 1.09 (0.6-1.2) mg/dl Est Cr Clr Drug Dosing 35.5 ml/min eGFR 51.36 BUN/Creatinine Ratio 19.3 (10-20) Glucose 122 H (70-99(Fasting)) mg/dl Calcium 9.5 (8.6-10.3) mg/dl Total Bilirubin 0.6 (0.2-1.0) mg/dl AST 16 (13-39) U/L ALT 10 (7-52) U/L Alkaline Phosphatase 94 (34-104) U/L Troponin I High Sens 5.4 (0-14) pg/ml B-Natriuretic Peptide 191 H (0-100) pg/ml Total Protein 6.7 (6.0-8.3) gm/dl Albumin 4.3 (3.4-5.0) gm/dl Globulin 2.4 L (2.5-4.0) gm/dl Albumin/Globulin Ratio 1.8 (0.9-2) TSH 1.880 (0.300-4.500) uIu/ml SARS-CoV-2 (PCR) NEGATIVE (Negative) Influenza Type A (PCR) Negative (Neg) Influenza Type B (PCR) Negative (Neg) RSV (RT-PCR) Negative (Neg) Imaging Data Radiologist's Impression: Chest X-Ray 07/19/24 12:55 XR chest 1V not portable CLINICAL HISTORY: Chest pain, nonspecific COMPARISON STUDY: 03/26/2023 FINDINGS: Stable mild cardiomegaly without pulmonary vascular congestion. No effusion, consolidation, or pneumothorax. Stable mild scoliosis. IMPRESSION: No acute findings. ACT 112: Negative or not required by law. Electronically signed by: Barber Richey M.D. 07/19/2024 1:41 PM Venous Doppler Study 07/19/24 15:31 EXAM: US venous doppler LE BI CLINICAL HISTORY: Poss clot, sob. TECHNIQUE: Ultrasound examination of bilateral lower extremity veins was performed in real time and duplex. One or more of the following were performed: spectral analysis, resistive index, waveform analysis, and pulsed Doppler. COMPARISON: None. FINDINGS: Normal phasic, non-pulsatile and spontaneous flow is noted in the bilateral common femoral, superficial femoral, popliteal , anterior tibial vein and peroneal veins and left posterior tibial vein . Visualized veins of both lower extremities demonstrate normal compressibility. No sonographic evidence of acute deep vein thrombosis (DVT) is detected in the visualized veins of both lower extremities. Compression and Augmentation: All evaluated veins compress fully with applied transducer pressure. Additional Findings: No evidence of intraluminal thrombus. IMPRESSION: No sonographic evidence of acute DVT was detected in the bilateral common femoral, superficial femoral, popliteal, anterior tibial vein and peroneal veins and left posterior tibial vein , at the time of examination. Disclaimer: DVT could be missed early in the disease when clot burden is minimal. For patients with moderate and high pretest probability of DVT and negative ultrasound, the [employer] clinical guidelines recommend testing with a D-dimer assay or repeat ultrasound in 5-7 days. If symptoms worsen, the Society of radiologists in ultrasound recommends repeating ultrasound even earlier. Electronically signed by Cruzito Casillas 07-19-2024 7:46 PM Discharge Plan Visit Data Chief Complaint: Shortness of Breath/Dyspnea Stated Complaint: SOB, LIGHT HEADED ED Provider: Robbin Bean Discharge Problem: SPAIN (dyspnea on exertion), Palpitations, SOB (shortness of breath), Dizziness Patient Disposition: Admitted As Inpatient Condition: Fair Forms Stand Alone Forms: My [facility] Prescriptions Prescriptions: No Action lisinopril 20 mg Tablet 20 mg PO BID famotidine 20 mg tablet 20 mg PO HS Patient Comments: pt unsure of name. found in rx history. carvedilol 3.125 mg Tablet 3.125 mg PO BID amoxicillin 500 mg Capsule 2,000 mg PO DIRECTED PRN (Reason: 1 HOUR PRIOR TO DENTAL PROCEDURES) amlodipine 5 mg tablet 5 mg PO QAM hydrochlorothiazide 12.5 mg capsule 25 mg PO QAM insulin glargine [Lantus Solostar U-100 Insulin] 100 unit/mL (3 mL) insulin pen 18 unit SUBCUT QAM MDD 40 UNITS/DAILY cholecalciferol (vitamin D3) [Vitamin D3] 125 mcg (5,000 unit) Tablet 125 mcg PO QAM pantoprazole 40 mg tablet,delayed release (DR/EC) 40 mg PO DAILY cyanocobalamin (vitamin B-12) [Vitamin B-12] 500 mcg Tablet 500 mcg PO QAM Centrum MultiGummies Women 80 mcg Tablet,Chewable 1 tab PO QAM aspirin 81 mg Capsule 81 mg PO QAM Referrals Referrals: Martha Mora MD [Primary Care Provider] -
[2024-07-19 16:06] LABS: Influenza A virus by PCR Negative (Neg); Influenza B virus by PCR Negative (Neg); RSV by PCR Negative (Neg); SARS CoV2 RNA(COVID-19) Ceph NEGATIVE (Negative)
--- NOTE | 2024-07-19 17:29 | History & Physical Report ---
Date of Service July 19, 2024 Assessment & Plan (1) Palpitations: (2) Shortness of breath: (3) History of tachycardia-bradycardia syndrome: Plan: Admit to telemetry Patient presenting by referral of outpatient pharm tech for evaluation of worsening exertional shortness of breath and palpitations. Patient follows closely with cardiology for history of HTN and paroxysmal atrial tachycardia. During recent office visit on 06/24, most recent ZIO report was reviewed showing possible transient high degree AV block. Patient diagnosed with tachybradycardia syndrome at that time and referred to electrophysiology. Patient reports that over the past 2 weeks, she has had an acute worsening in her symptoms. Reports that with minimal exertion she develops a pounding in her chest with chest heaviness, shortness of breath, and lightheadedness. In the ED, patient is hemodynamically stable, EKG showing sinus bradycardia ED provider wanted to pursue CTA to evaluate for PE however patient declined due to her history of severe vertigo. 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 Currently stable. Receiving outpatient therapy and is to see a specialist in [place] in the coming months. DVT PROPHYLAXIS SQ Lovenox Patient seen in cooperation with Dr. Rodriguez. I spent a total of 75 minutes coordinating, documenting, and providing care for this patient excluding time spent in the performance of separately billed services. This included personally reviewing all current laboratories and imaging studies, medication reconciliation, outpatient chart review, and discussion with specialists. History of Present Illness Chief Complaint: shortness of breath, palpitations, lightheadedness Primary Care Provider: Martha Mora MD 78-year-old female with PMH DM type II, diabetic gastroparesis, paroxysmal atrial tachycardia, HTN, GERD, PMR, BPV, anxiety, and other problems listed below who presents to the ED by referral of outpatient pharm tech for evaluation of shortness of breath, palpitations, lightheadedness. Patient follows closely with cardiology for history of HTN and paroxysmal atrial tachycardia. During recent office visit on 06/24, most recent ZIO report was reviewed showing possible transient high degree AV block. Patient diagnosed with tachybradycardia syndrome at that time and referred to electrophysiology. Patient reports that over the past 2 weeks, she has had an acute worsening in her symptoms. Reports that with minimal exertion she develops a pounding in her chest with chest heaviness, shortness of breath, and lightheadedness. Patient reported her symptoms to her outpatient pharm tech who referred her to the ED for further evaluation. She also has noted a mild lower extremity edema over the past couple of weeks as well. Patient also reports a history of severe vertigo and is currently receiving therapy and is scheduled to see a specialist in [place] in the coming months. States that due to her vertigo, she cannot lay back very far. patient denies any other recent illnesses, fevers, chills. She denies abdominal pain, nausea, vomiting, diarrhea. No urinary symptoms. In the ED, EKG shows sinus bradycardia. She is hemodynamically stable and labs are unremarkable. CTA chest was discussed with the patient however she declines at this time due to her history of severe vertigo and inability to lie flat. Bilateral lower extremity Dopplers are pending. Allergies Allergy/AdvReac Type Severity Reaction Status Date / Time Sulfa (Sulfonamide Allergy Intermediate Hives Verified 06/11/24 06:19 Antibiotics) Home Medications Medication Instructions Recorded Confirmed Type lisinopril 20 mg tablet 20 mg PO BID 03/24/18 07/19/24 History famotidine 20 mg tablet 20 mg PO HS 01/30/19 07/19/24 History carvedilol 3.125 mg tablet 3.125 mg PO BID 01/04/21 07/19/24 History amlodipine 5 mg tablet 5 mg PO QAM 03/26/23 07/19/24 History amoxicillin 500 mg capsule 2,000 mg PO DIRECTED PRN 1 HOUR 03/26/23 07/19/24 History PRIOR TO DENTAL PROCEDURES cholecalciferol (vitamin D3) 125 125 mcg PO QAM 03/26/23 07/19/24 History mcg (5,000 unit) tablet (Vitamin D3) hydrochlorothiazide 12.5 mg capsule 25 mg PO QAM 03/26/23 07/19/24 History insulin glargine 100 unit/mL (3 18 unit subcut QAM 03/26/23 07/19/24 History mL) subcutaneous pen (Lantus Solostar U-100 Insulin) aspirin 81 mg capsule 81 mg PO QAM 05/30/24 07/19/24 History cyanocobalamin (vitamin B-12) 500 500 mcg PO QAM 05/30/24 07/19/24 History mcg tablet (Vitamin B-12) multivitamin with minerals-folic 1 tab PO QAM 05/30/24 07/19/24 History acid 80 mcg chewable tablet (Centrum MultiGummies Women) pantoprazole 40 mg tablet,delayed 40 mg PO DAILY 07/19/24 07/19/24 History release Past Med/Surg History Problem List (Updated 07/19/24 @ 17:23 by SANDRA Alba) History of tachycardia-bradycardia syndrome Shortness of breath Palpitations S/P total left hip arthroplasty Degenerative joint disease of left hip Polymyalgia rheumatica Follows with rheum (Dr. Lo) - stable per patient Diabetes mellitus, type 2 NIDDM Vertigo (Acute) HTN (hypertension) Medical History (Updated 07/19/24 @ 17:23 by SANDRA Alba) Hx of basal cell carcinoma Polymyalgia rheumatica f/u [facility] HTN (hypertension) Diabetes mellitus, type 2 IDDM BPPV (benign paroxysmal positional vertigo) Severe balance problem and nausea GERD (gastroesophageal reflux disease) History of COVID-19 03/2020 > Symptoms at time: chills, extreme exhaustion>RESOLVED 04/2024 > resolved Gastroparesis Tachycardia Borderline tachy-yari syndrome, paroxysmal atrial tachycardia per records, controlled on low dose carvedilol; f/u [facility] Borderline high cholesterol Surgical History History of lumpectomy of right breast benign Hx of basal cell carcinoma excision Hx of bilateral cataract extraction Family history of reaction to anesthesia DAUGHTER>SEVERE NAUSEA History of total hip replacement LEFT Fracture, sacrum/coccyx as child, had to have sacrum removed due to fx PONV (postoperative nausea and vomiting) severe > "took a week" to get over this *SEVERE NAUSEA WHEN LAYING FLAT History of total knee replacement R/L History of esophagogastroduodenoscopy (EGD) History of colonoscopy History of tooth extraction Family History Mother Diabetes Father Diabetes Brother Diabetes Other Cancer Heart disease Stroke Social History Smoking Status: Never smoker Second Hand Exposure: Yes (hx growing up); Do You Dip or Chew Tobacco: No; Hx Alcohol Use: No Hx Substance Use: No Preferred Language: Sinhala Communication Ability: Effective Hearing Ability: Normal Vp Global Required: No Beliefs That Will Affect Care: None marital status: Current Living Situation: Alone Current Living Situation Comment: Lives at home with her current occupational status: retired Feels Safe at Home: Yes Assistive Devices: Glasses and Other Review of Systems Review of Systems: ROS per HPI, all other systems reviewed and negative Physical Exam Constitutional: WD/WN, vitals as above no acute distress ENMT: external ear and nose normal, oropharynx normal Respiratory: normal respiratory effort, lungs clear to auscultation Cardiovascular: Rate/Rhythm: regular rhythm and + bradycardic Vessels: normal peripheral pulses Extremities: + edema ( Trace edema BLE) Gastrointestinal (Abdomen): normal bowel sounds, soft, nontender, no hepatosplenomegaly Musculoskeletal: no cyanosis or clubbing, extremities motor strength 5/5 Skin: no rashes, warm and dry Neurologic: PERRL, EOMI, accommodation nl, no face palsy, no dysarthria Psychiatric: A+Ox3, euthymic affect Results & Data Results & Data Vital Signs (Past 12 Hours) Vital Signs Temp Pulse Pulse Resp BP BP Pulse Ox 07/19/24 15:57 57 L 07/19/24 15:10 51 L 19 96 07/19/24 15:10 56 L 20 142/84 H 95 07/19/24 15:10 07/19/24 12:51 36.5 C 48 L 16 130/52 L 98 O2 Del Method 07/19/24 15:57 07/19/24 15:10 Room Air 07/19/24 15:10 Room Air 07/19/24 15:10 Room Air 07/19/24 12:51 Room Air Laboratory Results Short CBC 07/19/24 Range/Units 13:04 WBC 5.85 (4.8-10.8) K/ul Hgb 12.3 (12.0-16.0) g/dl Hct 36.8 L (37.0-47.0) % Plt Count 270 (130-400) K/uL BMP 07/19/24 13:04 Sodium 134 L Potassium 4.2 Chloride 98 Carbon Dioxide 30 BUN 21 Creatinine 1.09 Glucose 122 H Calcium 9.5 Liver Function 07/19/24 Range/Units 13:04 Total Bilirubin 0.6 (0.2-1.0) mg/dl AST 16 (13-39) U/L ALT 10 (7-52) U/L Alkaline Phosphatase 94 (34-104) U/L Albumin 4.3 (3.4-5.0) gm/dl Diagnostic Findings Chest X-Ray 07/19/24 12:55 XR chest 1V not portable CLINICAL HISTORY: Chest pain, nonspecific COMPARISON STUDY: 03/26/2023 FINDINGS: Stable mild cardiomegaly without pulmonary vascular congestion. No effusion, consolidation, or pneumothorax. Stable mild scoliosis. IMPRESSION: No acute findings. ACT 112: Negative or not required by law. Electronically signed by: Barber Richey M.D. 07/19/2024 1:41 PM Code Status & VTE Plan VTE Prophylaxis Plan VTE Prophylaxis will be ordered: Yes Supervising Physician Co-Signing Physician Notes 78-year-old lady with PMH of diabetic gastroparesis, T2DM, PAT, HTN, GERD, PMR, anxiety presents at referral of cardiology office for evaluation of shortness of breath with exertion, associated with palpitation and lightheadedness. Patient reports her symptoms has been much worse in the last 1 week. Denies any flulike illness/fever/chest pain/nausea/vomiting/acute changes in bowel or bladder habit. Patient denies any falls. Labs and imaging fairly WNL. Cardiology consult, continue with telemetry monitoring. On exam: GENERAL: Alert and oriented x3. NAD, on RA. HEENT: No pallor, no icterus. Pupils equal, round and reactive to light. Oral mucosa moist. NECK: No JVD, no neck masses. HEART: S1 and S2 heard. Regular rate and rhythm. HR In 50s. No murmur, no gallop. RESPIRATORY SYSTEM: Normal AP diameter. No accessory muscle use. No wheezing, no crackles. ABDOMEN: Soft, bowel sounds present, nontender, no distention. CENTRAL NERVOUS SYSTEM: No facial droop. Speech is clear. Obeys simple commands. Moves extremities. EXTREMITIES: trace ble edema, no erythema seen. I have seen and examined the patient and have discussed the case with the provider above. I agree with the assessment and plan as stated. Time spent independently: 25 min.
[2024-07-19 18:01] LABS: Thyroid Stimulating Hormone 1.88 uIu/ml (0.300-4.500)
--- NOTE | 2024-07-19 19:46 | Ultrasound Report ---
EXAM: US venous doppler LE BI CLINICAL HISTORY: Poss clot, sob. TECHNIQUE: Ultrasound examination of bilateral lower extremity veins was performed in real time and duplex. One or more of the following were performed: spectral analysis, resistive index, waveform analysis, and pulsed Doppler. COMPARISON: None. FINDINGS: Normal phasic, non-pulsatile and spontaneous flow is noted in the bilateral common femoral, superficial femoral, popliteal , anterior tibial vein and peroneal veins and left posterior tibial vein . Visualized veins of both lower extremities demonstrate normal compressibility. No sonographic evidence of acute deep vein thrombosis (DVT) is detected in the visualized veins of both lower extremities. Compression and Augmentation: All evaluated veins compress fully with applied transducer pressure. Additional Findings: No evidence of intraluminal thrombus. IMPRESSION: No sonographic evidence of acute DVT was detected in the bilateral common femoral, superficial femoral, popliteal, anterior tibial vein and peroneal veins and left posterior tibial vein , at the time of examination. Disclaimer: DVT could be missed early in the disease when clot burden is minimal. For patients with moderate and high pretest probability of DVT and negative ultrasound, the [employer] clinical guidelines recommend testing with a D-dimer assay or repeat ultrasound in 5-7 days. If symptoms worsen, the Society of radiologists in ultrasound recommends repeating ultrasound even earlier. Electronically signed by Cruzito Casillas 07-19-2024 7:46 PM
[2024-07-19] MEDS ORDERED: GLUCAGON FOR INJ 1 MG VIAL SQ PRN (21:58)
[2024-07-19] MEDS ORDERED: ACETAMINOPHEN 325 MG TAB PO PRN (21:58)
[2024-07-19] MEDS ORDERED: DEXTROSE 50% 50 ML SYRINGE IV PRN (21:58)
[2024-07-19] MEDS ORDERED: GLUCOSE 10 TAB/TUBE PO PRN (21:58)
[2024-07-19] MEDS ORDERED: GLUCOSE 40% GEL 15 GM TUBE PO PRN (21:58)
[2024-07-19] MEDS ORDERED: CARBOHYDRATES FOR HYPOGLYCEMIA PO PRN (21:58)
[2024-07-19] MEDS: ENOXAPARIN INJ 40 MG/0.4 ML SYR SQ SCH (23:02)
[2024-07-19] MEDS: FAMOTIDINE 20 MG TAB PO SCH (23:02)
[2024-07-19] MEDS: lisinopril 20 MG TAB PO SCH (23:03)
[2024-07-19] MEDS: INSULIN ASPART PER UNIT CHARGE SC SCH (23:03)
[2024-07-19] MEDS: carvediloL 3.125 MG TAB PO SCH (23:04)
[2024-07-20 06:21] LABS: Hematocrit (blood only) 32.9 % (37.0-47.0); Hemoglobin 11.3 g/dl (12.0-16.0); Mean Corpuscular Hemoglobin 28.6 pg (25.0-34.0); Mean Corpuscular Hgb Conc 34.3 g/dL (32.0-36.0); Mean Corpuscular Volume 83.3 fL (80.0-100.0); Mean Platelet Volume 9.5 fL (9.4-12.4); Platelet Count 245 K/uL (130-400); RDW Standard Deviation 39.4 fL (36.4-46.3); Red Blood Count 3.95 M/uL (4.20-5.40); White Blood Count 5.53 K/ul (4.8-10.8)
[2024-07-20 06:46] LABS: BUN Creatinine Ratio 19.3 (10-20); Calcium 8.7 mg/dl (8.6-10.3); Creatinine Clr Calc Pharmacy 35.5 ml/min; Potassium 3.8 mmol/L (3.5-5.1)
[2024-07-20 07:39] LABS: Estimated Average Glucose 157 mg/dl; Hemoglobin A1C 7.1 % (4.5-5.6)
[2024-07-20] MEDS: PANTOprazole 40 MG TAB PO SCH (08:14)
[2024-07-20] MEDS: ASPIRIN 81 MG ECTAB PO SCH (08:14)
[2024-07-20] MEDS: amLODIPine BESYLATE 5 MG TAB PO SCH (08:16)
[2024-07-20] MEDS: hydroCHLOROthiazide 25 MG TAB PO SCH (08:52)
--- NOTE | 2024-07-20 11:13 | Electrocardiogram Report ---
Test Reason : Blood Pressure : */* mmHG Vent. Rate : 61 BPM Atrial Rate : 51 BPM P-R Int : 234 ms QRS Dur : 110 ms QT Int : 468 ms P-R-T Axes : 46 -33 42 degrees QTcB Int : 471 ms Sinus bradycardia with 1st degree A-V block with occasional Premature ventricular complexes and Any ture atrial complexes Left axis deviation Low voltage QRS Right bundle branch block Poor R wave progression, consider anterior UT vs. lead placement vs. LVH Confirmed by Dariusz Meredith ([id number]) on 07/20/2024 11:12:56 AM Referred By: REFERRED SELF Confirmed By: Dariusz Meredith
[2024-07-20 11:46] VITALS: BP 138/60; PULSE 74; RESP 16; TEMP 97.9; O2SAT 96
--- NOTE | 2024-07-20 11:50 | Discharge Summary ---
Discharge Summary Date of Service July 20, 2024 Principal Dx & Hospital Course #1 = Principal Diagnosis (1) Sick sinus syndrome due to sinoatrial node dysfunction: (2) HTN (hypertension): (3) Diabetes mellitus, type 2: (4) Polymyalgia rheumatica: Plan Patient 78-year-old female who was sent to the emergency room by outpatient provider due to palpitation and bradycardia. Patient wearing ZIO monitor with a known history of early sick sinus syndrome. Patient was admitted to the hospital. She was observed on telemetry monitoring. Her beta-matthew was held. She had no's significant signs of high-grade AV block. No significant severe bradycardia. She was up and ambulating in the room with minimal symptoms. Was evaluated by electrophysiology cardiology. They recommended continuing to hold the Coreg. They recommended patient to be discharged home to be able to spend the holiday weekend with her family and they will coordinate pacemaker placement as an outpatient through [facility] on Monday. Patient was given these instructions. Discharged home to follow-up for pacemaker through Dr. Turner at [facility] on beginning next week. Notes For Next Care Provider Continue to follow with electrophysiology Medication Changes From Visit Coreg discontinued Admission HPI Per Admitting Provider 78-year-old female with PMH DM type II, diabetic gastroparesis, paroxysmal atrial tachycardia, HTN, GERD, PMR, BPV, anxiety, and other problems listed below who presents to the ED by referral of outpatient gold miner for evaluation of shortness of breath, palpitations, lightheadedness. Patient follows closely with cardiology for history of HTN and paroxysmal atrial tachycardia. During recent office visit on 06/24, most recent ZIO report was reviewed showing possible transient high degree AV block. Patient diagnosed wi th tachybradycardia syndrome at that time and referred to electrophysiology. Patient reports that over the past 2 weeks, she has had an acute worsening in her symptoms. Reports that with minimal exertion she develops a pounding in her chest with chest heaviness, shortness of breath, and lightheadedness. Patient reported her symptoms to her outpatient gold miner who referred her to the ED for further evaluation. She also has noted a mild lower extremity edema over the past couple of weeks as well. Patient also reports a history of severe vertigo and is currently receiving therapy and is scheduled to see a specialist in [place] in the coming months. States that due to her vertigo, she cannot lay back very far. patient denies any other recent illnesses, fevers, chills. She denies abdominal pain, nausea, vomiting, diarrhea. No urinary symptoms. In the ED, EKG shows sinus bradycardia. She is hemodynamically stable and labs are unremarkable. CTA chest was discussed with the patient however she declines at this time due to her history of severe vertigo and inability to lie flat. Bilateral lower extremity Dopplers are pending. Admission Exam Per Admitting Provider See H&P Discharge Exam Constitutional: Alert HEENT: Mucous membranes moist. Lungs: Clear to auscultation, decreased, no wheezes rales or rhonchi CV: S1-S2, regular, bradycardic Abdomen: Soft, nontender, nondistended Extremities: No significant edema Neuro: No focal deficits Psych: Cooperative, normal mood Updated Medication List Medication Instructions Recorded Confirmed Type lisinopril 20 mg tablet 20 mg PO BID 03/24/18 07/19/24 History famotidine 20 mg tablet 20 mg PO HS 01/30/19 07/19/24 History amlodipine 5 mg tablet 5 mg PO QAM 03/26/23 07/19/24 History amoxicillin 500 mg capsule 2,000 mg PO DIRECTED PRN 1 HOUR 03/26/23 07/19/24 History PRIOR TO DENTAL PROCEDURES cholecalciferol (vitamin D3) 125 125 mcg PO QAM 03/26/23 07/19/24 History mcg (5,000 unit) tablet (Vitamin D3) hydrochlorothiazide 12.5 mg capsule 25 mg PO QAM 03/26/23 07/19/24 History insulin glargine 100 unit/mL (3 18 unit subcut QAM 03/26/23 07/19/24 History mL) subcutaneous pen (Lantus Solostar U-100 Insulin) aspirin 81 mg capsule 81 mg PO QAM 05/30/24 07/19/24 History cyanocobalamin (vitamin B-12) 500 500 mcg PO QAM 05/30/24 07/19/24 History mcg tablet (Vitamin B-12) multivitamin with minerals-folic 1 tab PO QAM 05/30/24 07/19/24 History acid 80 mcg chewable tablet (Centrum MultiGummies Women) pantoprazole 40 mg tablet,delayed 40 mg PO DAILY 07/19/24 07/19/24 History release Hospital Stay Data Consultations 07/19/24 15:53 ED Decision to Admit Stat 07/19/24 21:58 Consult Cardiology Routine Diagnostic Imagining Performed 07/19/24 15:31 US venous duplex leg [US venous doppler LE BI] Stat [facility] CBC stable, hemoglobin 11.3 Electrolytes within normal range Creatinine 1.09 Hemoglobin A1c 7.1% TSH 1.88 Ultrasound lower extremity negative for DVT Pending Results Patient Have Any Pending Studies at Discharge: No Discharge Instructions Given to Patient (Per Discharging Provider) Take it easy the rest of the weekend Take half of your usual Lantus dose on Monday evening Stop your Coreg Do not take any medications Monday morning Dr. Douglas /[facility] will contact you for procedure/pacemaker insertion on Monday Total Time Total Time Spent Total Time Spent (In Minutes): 35
[2024-07-20] MEDS: LANTUS PER UNIT CHARGE SQ ONE (12:31)
--- NOTE | 2024-07-20 12:32 | Cardiology Consultation ---
<Statement entered by Nasreen Douglas DO - 07/20/24 21:36> I have reviewed the advanced practitioner's documentation and agree with the plan of care. I accept the responsibility for the associated risk. Pt seen in cardiology f/u due to SSS pt has worsening SSS recommend dual chamber pacemaker; this can be done as an outpatient next week Monday at [facility]; discussed the procedure and potential risks-she and her daughter expressed an understanding; and agreed stop coreg she can be discharged home; will take it easy discussed with the hospitalist over the phone and he agreed with my recommendations Date of Consultation July 20, 2024 Assessment & Plan (1) Sick sinus syndrome due to sinoatrial node dysfunction: (2) Palpitations: (3) Vertigo: (4) HTN (hypertension): (5) SPAIN (dyspnea on exertion): Plan - ZIO monitor reviewed indicated evidence of tachybradycardia syndrome, sick sinus syndrome - Heart rates do not appear to be getting up with activity very well and she was symptomatic with junctional rhythm events - She is on very low-dose carvedilol would hold this medication for now - Recommend dual-chamber pacemaker which we reviewed with the patient and her daughter and she was agreeable for - She has not had any syncopal events and is otherwise stable so we discussed completing this as an outpatient which she would prefer - Okay for discharge home and continue to take it easy for the weekend - Will plan for dual-chamber pacemaker on Monday which can be completed as an outpatient at [facility] - Stop carvedilol - Did discuss she will need to be n.p.o. after midnight Monday night and she should only take half dose of Lantus on Monday with no medications taken prior to the procedure on Monday - Patient and daughter agreeable to the plan, also coordinated with attending service who agreed Case discussed with Dr. Douglas, see her attestation for additional details SANDRA Estevez Department of Cardiology, [facility] This chart was completed in part utilizing Speech Voice Recognition Software. Gr ammatical errors, random word insertions, pronoun errors, and incomplete sentences are an occasional consequence of this system due to software limitations, ambient noise, and hardware issues. Any formal questions or concerns about the content, text, or information contained within the body of this dictation should be directly addressed to the provider for clarification. History of Present Illness Reason for Consultation: Shortness of breath, palpitations Requesting Physician: Hospitalist Attending Physician: Gerardo De Leon, DO History of Present Illness 78-year-old female seen in consultation today in regard to shortness of breath and palpitations. Has been having ongoing symptoms which have been slightly worsening over time. 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 She had reached out to the office yesterday reporting that her symptoms were worsening at which time they encouraged her to go to the emergency room for further evaluation. She does notice sitting still she feels well does have chronic vertigo worsening if she lays too far flat but has had some shortness of breath and activity intolerance. blood pressures have also been trending on the higher side. Allergies Allergy/AdvReac Type Severity Reaction Status Date / Time Sulfa (Sulfonamide Allergy Intermediate Hives Verified 06/11/24 06:19 Antibiotics) Home Medications Medication Instructions Recorded Confirmed Type lisinopril 20 mg tablet 20 mg PO BID 03/24/18 07/19/24 History famotidine 20 mg tablet 20 mg PO HS 01/30/19 07/19/24 History amlodipine 5 mg tablet 5 mg PO QAM 03/26/23 07/19/24 History amoxicillin 500 mg capsule 2,000 mg PO DIRECTED PRN 1 HOUR 03/26/23 07/19/24 History PRIOR TO DENTAL PROCEDURES cholecalciferol (vitamin D3) 125 125 mcg PO QAM 03/26/23 07/19/24 History mcg (5,000 unit) tablet (Vitamin D3) hydrochlorothiazide 12.5 mg capsule 25 mg PO QAM 03/26/23 07/19/24 History insulin glargine 100 unit/mL (3 18 unit subcut QAM 03/26/23 07/19/24 History mL) subcutaneous pen (Lantus Solostar U-100 Insulin) aspirin 81 mg capsule 81 mg PO QAM 05/30/24 07/19/24 History cyanocobalamin (vitamin B-12) 500 500 mcg PO QAM 05/30/24 07/19/24 History mcg tablet (Vitamin B-12) multivitamin with minerals-folic 1 tab PO QAM 05/30/24 07/19/24 History acid 80 mcg chewable tablet (Centrum MultiGummies Women) pantoprazole 40 mg tablet,delayed 40 mg PO DAILY 07/19/24 07/19/24 History release Patient History Medical History Hx of basal cell carcinoma Polymyalgia rheumatica f/u [facility] HTN (hypertension) Diabetes mellitus, type 2 IDDM BPPV (benign paroxysmal positional vertigo) Severe balance problem and nausea GERD (gastroesophageal reflux disease) History of COVID-19 03/2020 > Symptoms at time: chills, extreme exhaustion>RESOLVED 04/2024 > resolved Gastroparesis Tachycardia Borderline tachy-yari syndrome, paroxysmal atrial tachycardia per records, c ontrolled on low dose carvedilol; f/u [facility] Borderline high cholesterol Surgical History History of lumpectomy of right breast benign Hx of basal cell carcinoma excision Hx of bilateral cataract extraction Family history of reaction to anesthesia DAUGHTER>SEVERE NAUSEA History of total hip replacement LEFT Fracture, sacrum/coccyx as child, had to have sacrum removed due to fx PONV (postoperative nausea and vomiting) severe > "took a week" to get over this *SEVERE NAUSEA WHEN LAYING FLAT History of total knee replacement R/L History of esophagogastroduodenoscopy (EGD) History of colonoscopy History of tooth extraction Family History Mother Diabetes Father Diabetes Brother Diabetes Other Cancer Heart disease Stroke Social History Smoking Status: Never smoker Second Hand Exposure: Yes (hx growing up); Do You Dip or Chew Tobacco: No; Hx Alcohol Use: No Hx Substance Use: No Preferred Language: Greek Communication Ability: Effective Hearing Ability: Normal Inside Sales Advisor Required: No Beliefs That Will Affect Care: None marital status: Current Living Situation: Alone Current Living Situation Comment: Lives at home with her current occupational status: retired Other Information That Helps Us Care for You: No Feels Safe at Home: Yes Safety Concerns: Feels Safe At This Time Assistive Devices: Other Review of Systems Constitutional: + fatigue Eyes: no problem reported Respiratory: no cough Cardiovascular: + dyspnea on exertion, + palpitations an d + lightheadedness; no chest pain and no syncope Gastrointestinal: no abdominal pain, no nausea and no vomiting Integumentary: no rash and no lesions Neurologic: + unsteadiness Physical Exam Constitutional: well developed, well nourished and comfortable; not ill appearing Eyes: PERRL, conjunctivae normal, anicteric sclerae Neck: trachea midline, no thyromegaly Respiratory: normal respiratory effort, lungs clear to auscultation Cardiovascular: Rate/Rhythm: regular rate and + bradycardic Heart Sounds: normal S1 and normal S2; no murmur Vessels: no JVD Gastrointestinal (Abdomen): normal bowel sounds, soft, nontender, no hepatosplenomegaly Skin: no rashes, warm and dry Psychiatric: A+Ox3, euthymic affect Results & Data Vital Signs (Past 12 Hours) Vital Signs Temp Pulse Resp BP Pulse Ox O2 Del Method 07/20/24 11:30 36.6 C 74 16 138/60 96 Room Air 07/20/24 07:38 36.5 C 63 18 148/63 H 97 Room Air 07/20/24 03:10 36.4 C L 57 L 19 112/65 96 Room Air Laboratory Results Cardiac Enzymes 07/19/24 Range/Units 13:04 AST 16 (13-39) U/L Troponin I High Sens 5.4 (0-14) pg/ml B-Natriuretic Peptide 191 H (0-100) pg/ml Coagulation 07/19/24 Range/Units 13:04 PT 10.4 (9.0-12.0) Seconds APTT 25 (21-31) Seconds B-Natriuretic Peptide 191 H (0-100) pg/ml CBC 07/19/24 07/20/24 Range/Units 13:04 05:50 WBC 5.85 5.53 (4.8-10.8) K/ul RBC 4.42 3.95 L (4.20-5.40) M/uL Hgb 12.3 11.3 L (12.0-16.0) g/dl Hct 36.8 L 32.9 L (37.0-47.0) % Plt Count 270 245 (130-400) K/uL Neut # (Auto) 3.52 (1.40-6.50) K/uL Lymph # (Auto) 1.66 (1.20-3.40) K/uL Gilmer # (Auto) 0.44 (0.11-0.59) K/uL Eos # (Auto) 0.20 (0.00-0.50) K/uL Baso # (Auto) 0.02 (0.00-0.20) K/uL Comprehensive Metabolic Panel 07/19/24 07/20/24 Range/Units 13:04 05:50 Sodium 134 L 137 (136-145) mmol/L Potassium 4.2 3.8 (3.5-5.1) mmol/L Chloride 98 102 (98-107) mmol/L Carbon Dioxide 30 29 (21-32) mmol/L BUN 21 21 (6-23) mg/dl Creatinine 1.09 1.09 (0.6-1.2) mg/dl Glucose 122 H 102 H (70-99(Fasting)) mg/dl Calcium 9.5 8.7 (8.6-10.3) mg/dl AST 16 (13-39) U/L ALT 10 (7-52) U/L Alkaline Phosphatase 94 (34-104) U/L Total Protein 6.7 (6.0-8.3) gm/dl Albumin 4.3 (3.4-5.0) gm/dl Intake and Output 07/19/24 07/20/24 07/20/24 22:59 06:59 14:59 Intake Total 240 / 240 Balance 240 / 240 Intake: Oral 240 / 240 Other: Weight 64.5 kg 64.2 kg Weight Measurement Method Chair Scale Standing Scale Diagnostic Findings Laboratory Results WBC 5.53 K/ul (4.8-10.8) 07/20/24 05:50 RBC 3.95 M/uL (4.20-5.40) L 07/20/24 05:50 Hgb 11.3 g/dl (12.0-16.0) L 07/20/24 05:50 Hct 32.9 % (37.0-47.0) L 07/20/24 05:50 MCV 83.3 fL (80.0-100.0) 07/20/24 05:50 MCH 28.6 pg (25.0-34.0) 07/20/24 05:50 MCHC 34.3 g/dL (32.0-36.0) 07/20/24 05:50 RDW Std Deviation 39.4 fL (36.4-46.3) 07/20/24 05:50 RDW Coeff of Breanna 13.0 % (11.5-14.5) 07/20/24 05:50 Plt Count 245 K/uL (130-400) 07/20/24 05:50 MPV 9.5 fL (9.4-12.4) 07/20/24 05:50 Immature Gran % (Auto) 0.2 % 07/19/24 13:04 Neut % (Auto) 60.2 % 07/19/24 13:04 Lymph % (Auto) 28.4 % 07/19/24 13:04 Gilmer % (Auto) 7.5 % 07/19/24 13:04 Eos % (Auto) 3.4 % 07/19/24 13:04 Baso % (Auto) 0.3 % 07/19/24 13:04 Neut # (Auto) 3.52 K/uL (1.40-6.50) 07/19/24 13:04 Lymph # (Auto) 1.66 K/uL (1.20-3.40) 07/19/24 13:04 Gilmer # (Auto) 0.44 K/uL (0.11-0.59) 07/19/24 13:04 Eos # (Auto) 0.20 K/uL (0.00-0.50) 07/19/24 13:04 Baso # (Auto) 0.02 K/uL (0.00-0.20) 07/19/24 13:04 Immature Gran # (Auto) 0.01 K/uL (0.01-0.20) 07/19/24 13:04 PT 10.4 Seconds (9.0-12.0) 07/19/24 13:04 INR 1.0 (0.9-1.1) 07/19/24 13:04 APTT 25 Seconds (21-31) 07/19/24 13:04 PTT Ratio 0.9 07/19/24 13:04 Sodium 137 mmol/L (136-145) 07/20/24 05:50 Potassium 3.8 mmol/L (3.5-5.1) 07/20/24 05:50 Chloride 102 mmol/L (98-107) 07/20/24 05:50 Carbon Dioxide 29 mmol/L (21-32) 07/20/24 05:50 Anion Gap 6 (3-11) 07/20/24 05:50 BUN 21 mg/dl (6-23) 07/20/24 05:50 Creatinine 1.09 mg/dl (0.6-1.2) 07/20/24 05:50 Est Cr Clr Drug Dosing 35.5 ml/min 07/20/24 05:50 eGFR 51.36 07/20/24 05:50 BUN/Creatinine Ratio 19.3 (10-20) 07/20/24 05:50 Glucose 102 mg/dl (70-99(Fasting)) H 07/20/24 05:50 POC Glucose 109 mg/dl (70-99) H 07/20/24 11:43 Estimat Average Glucose 157 mg/dl 07/20/24 05:50 Hemoglobin A1c 7.1 % (4.5-5.6) H 07/20/24 05:50 Calcium 8.7 mg/dl (8.6-10.3) 07/20/24 05:50 Total Bilirubin 0.6 mg/dl (0.2-1.0) 07/19/24 13:04 AST 16 U/L (13-39) 07/19/24 13:04 ALT 10 U/L (7-52) 07/19/24 13:04 Alkaline Phosphatase 94 U/L (34-104) 07/19/24 13:04 Troponin I High Sens 5.4 pg/ml (0-14) 07/19/24 13:04 B-Natriuretic Peptide 191 pg/ml (0-100) H 07/19/24 13:04 Total Protein 6.7 gm/dl (6.0-8.3) 07/19/24 13:04 Albumin 4.3 gm/dl (3.4-5.0) 07/19/24 13:04 Globulin 2.4 gm/dl (2.5-4.0) L 07/19/24 13:04 Albumin/Globulin Ratio 1.8 (0.9-2) 07/19/24 13:04 TSH 1.880 uIu/ml (0.300-4.500) 07/19/24 13:04 SARS-CoV-2 (PCR) NEGATIVE (Negative) 07/19/24 15:13 Influenza Type A (PCR) Negative (Neg) 07/19/24 15:13 Influenza Type B (PCR) Negative (Neg) 07/19/24 15:13 RSV (RT-PCR) Negative (Neg) 07/19/24 15:13 Impressions Chest X-Ray 07/19/24 12:55 XR chest 1V not portable CLINICAL HISTORY: Chest pain, nonspecific COMPARISON STUDY: 03/26/2023 FINDINGS: Stable mild cardiomegaly without pulmonary vascular congestion. No effusion, consolidation, or pneumothorax. Stable mild scoliosis. IMPRESSION: No acute findings. ACT 112: Negative or not required by law. Electronically signed by: Barber Richey M.D. 07/19/2024 1:41 PM Venous Doppler Study 07/19/24 15:31 EXAM: US venous doppler LE BI CLINICAL HISTORY: Poss clot, sob. TECHNIQUE: Ultrasound examination of bilateral lower extremity veins was performed in real time and duplex. One or more of the following were performed: spectral analysis, resistive index, waveform analysis, and pulsed Doppler. COMPARISON: None. FINDINGS: Normal phasic, non-pulsatile and spontaneous flow is noted in the bilateral common femoral, superficial femoral, popliteal , anterior tibial vein and peroneal veins and left posterior tibial vein . Visualized veins of both lower extremities demonstrate normal compressibility. No sonographic evidence of acute deep vein thrombosis (DVT) is detected in the visualized veins of both lower extremities. Compression and Augmentation: All evaluated veins compress fully with applied transducer pressure. Additional Findings: No evidence of intraluminal thrombus. IMPRESSION: No sonographic evidence of acute DVT was detected in the bilateral common femoral, superficial femoral, popliteal, anterior tibial vein and peroneal veins and left posterior tibial vein , at the time of examination. Disclaimer: DVT could be missed early in the disease when clot burden is minimal. For patients with moderate and high pretest probability of DVT and negative ultrasound, the [employer] clinical guidelines recommend testing with a D-dimer assay or repeat ultrasound in 5-7 days. If symptoms worsen, the Society of radiologists in ultrasound recommends repeating ultrasound even earlier. Electronically signed by Cruzito Casillas 07-19-2024 7:46 PM Medications Administered Current Inpatient Medications Acetaminophen (Acetaminophen 325 Mg Tab) 650 mg PO Q4H PRN PRN Reason: Pain or Fever Stop: 08/18/24 21:57 Amlodipine Besylate (Amlodipine Besylate 5 Mg Tab) 5 mg PO QAM [facility] Stop: 08/19/24 08:59 Last Admin: 07/20/24 08:16 Dose: 5 mg Aspirin (Aspirin 81 Mg Ectab) 81 mg PO QAM [facility] Stop: 08/19/24 08:59 Last Admin: 07/20/24 08:14 Dose: 81 mg Carvedilol (Carvedilol 3.125 Mg Tab) 3.125 mg PO BIDM [facility] Stop: 08/18/24 21:57 Last Admin: 07/20/24 08:17 Dose: Not Given Dextrose (Dextrose 50% 50 Ml Syringe) 25 - 50 ml IV UD PRN; Protocol PRN Reason: Hypoglycemia Protocol Stop: 08/18/24 21:57 Enoxaparin Sodium (Enoxaparin Inj 40 Mg/0.4 Ml Syr) 40 mg SQ Q24H [facility] Stop: 08/18/24 22:14 Last Admin: 07/19/24 23:02 Dose: 40 mg Famotidine (Famotidine 20 Mg Tab) 20 mg PO HS [facility] Stop: 08/18/24 21:57 Last Admin: 07/19/24 23:02 Dose: 20 mg Glucagon (Glucagon For Inj 1 Mg Vial) 1 mg SQ UD PRN; Protocol PRN Reason: Hypoglycemia Protocol Stop: 08/18/24 21:57 Glucose (Glucose 40% Gel 15 Gm Tube) 15 - 30 gm PO UD PRN; Protocol PRN Reason: Hypoglycemia Protocol Stop: 08/18/24 21:57 Glucose (Glucose 10 Tab/Tube) 4 - 8 tab PO UD PRN; Protocol PRN Reason: Hypoglycemia Protocol Stop: 08/18/24 21:57 Hydrochlorothiazide ([facility]chlorothiazide 25 Mg Tab) [facility] Stop: 08/19/24 08:59 Last Admin: 07/20/24 08:52 Dose: 25 mg Insulin Aspart (Insulin Aspart Per Unit Charge) 0 units SC ACHS [facility] Stop: 08/18/24 21:57 Last Admin: 07/20/24 11:54 Dose: Not Given Lisinopril (Lisinopril 20 Mg Tab) 20 mg PO BID [facility] Stop: 08/18/24 21:57 Last Admin: 07/20/24 08:15 Dose: 20 mg Miscellaneous (Carbohydrates For Hypoglycemia ) 15 - 30 gm PO UD PRN PRN Reason: Hypoglycemia Protocol Stop: 08/18/24 21:57 Pantoprazole Sodium (Pantoprazole 40 Mg Tab) 40 mg PO DAILY [facility] Stop: 08/19/24 08:59 Last Admin: 07/20/24 08:14 Dose: 40 mg
== END 2024-07-20 13:42 | disposition home or self-care (01) | DRG 309 ==
LOC: ED 12:28 → SUATTDRO 16:26 → 2S 16:26